=== PATIENT | female | born 1985 | race Caucasian/White ===

== ENCOUNTER 2016-06-12 20:31 | Inpatient (IN) | payer OTHER ==
[~2016-06-12] VITALS: Ht 152.4 cm; Wt 77.7 kg
[~2016-06-12 20:31] MED LIST: DEPO150I IM; LORT1TAB PO; MAGN400T2 PO; MAXA5TAB10 PO; MEDR15VL IM; NORC5TAB PO; PRIL20CA9 PO; VITA-113 SL; VITA50003 PO; ZOFR20TA PO
[2016-06-12] MEDS ORDERED: NS 2,000 ML IV ONE (21:15)
[2016-06-12] MEDS ORDERED: METOCLOPRAMIDE INJ 10MG/2ML VIAL (J2765) IV ONE (21:15)
[2016-06-12 22:04] LABS: MEAN CORPUSCULAR HEMOGLOBIN 32.8 pg (27.0-33.0); MEAN CORPUSCULAR HGB CONC 34.2 g/dl (32.0-36.5); MEAN CORPUSCULAR VOLUME 95.9 fl (80.0-96.0); PLATELET COUNT, AUTOMATED 349 k/mm3 (150-450); RED CELL DISTRIBUTION WIDTH 12.6 % (11.5-14.5); WHITE BLOOD COUNT 26.2 K/mm3 (4.0-10.0)
[2016-06-12 22:12] LABS: ALBUMIN 4.5 GM/DL (3.2-5.2); ALBUMIN/GLOBULIN RATIO 0.9 (1.00-1.93); BILIRUBIN,DIRECT 0.1 MG/DL (0.0-0.2); BILIRUBIN,TOTAL 1.1 MG/DL (0.2-1.0); CREATININE FOR GFR 2.58 MG/DL (0.55-1.02); GLOMERULAR FILTRATION RATE 22.9 (>60); POTASSIUM SERUM 4.2 MEQ/L (3.5-5.1); TOTAL PROTEIN 9.5 GM/DL (6.4-8.2)
[2016-06-12 22:25] LABS: BANDS 21 % (< 11)
[2016-06-12] MEDS ORDERED: NS 1,000 ML IV ONE (22:45)
[2016-06-13] MEDS ORDERED: MORPHINE 4 MG/ML 1ML SYRINGE IV ONE
--- NOTE | 2016-06-13 00:20 | REPUSA ---
CLINICAL HISTORY: Pain. TECHNIQUE: Multiple axial CT images were obtained through the abdomen and pelvis without administrat ion of oral or IV contrast material. COMMENTS: Liver is enlarged with diffuse hepatic hypoattenuation compatible with fatty infiltration. There is no intra or extrahepatic biliary ductal dilatation. The spleen is normal. The gallbladder is within normal limits. The pancreas is of normal contour and attenuation characteristics. There is no evid ence of adrenal mass. The kidneys are normal in size, shape and configuration. No renal or ureteral calculi are identified . There is no hydroureter or hydronephrosis. Status post appendectomy. There is evidence of severe circumferential wall thickening involving duod enum as well as loops of jejunum and ileum compatible with enteritis. No evidence for small or large bowel obstruction. There is no evidence of abdominal ascites or lymphadenopathy. There is no evidence of intrinsic or extrinsic bladder mass. There is no pelvic ascites or lymphaden opathy. Uterus and ovaries are unremarkable. Images of the lung bases show no evidence of pleural or parenchymal mass. There are no pleural effus ions. The bony structures are free of lytic or blastic lesions. IMPRESSION: 1. Fatty liver. 2. Relatively severe enteritis. Consider consultation with GI service. Thank you for your kind referral of this patient. We appreciate the opportunity to participate in th is patient's care.
[2016-06-13] MEDS ORDERED: ONDANSETRON 4MG/2ML VIAL (J2405) IV ONE (00:30)
[2016-06-13] MEDS ORDERED: CYCL10TA PO (01:22)
[2016-06-13] MEDS ORDERED: LYRI75CA PO (01:22)
[2016-06-13] MEDS ORDERED: VITA50003 PO (01:22)
[2016-06-13] MEDS ORDERED: AUGM875T27 PO (01:22)
[2016-06-13] MEDS: NS 1,000 ML IV SCH ×3 (01:58→15:57)
[2016-06-13] MEDS ORDERED: ONDANSETRON 4MG/2ML VIAL (J2405) IV PRN (02:15)
[2016-06-13] MEDS ORDERED: CYCLOBENZAPRINE 10 MG TAB PO PRN (02:15)
[2016-06-13 02:30] LABS: CONTROL LINE HCG INT CTR LINE PRESENT
[2016-06-13 02:41] LABS: MAGNESIUM LEVEL 1.9 MG/DL (1.8-2.4)
[2016-06-13] MEDS: PIPERACILLIN/TAZOBACTAM SOD 2.25 GM in D5W MINI-BAG PLUS 50 ML IV SCH ×4 (04:21→21:32)
--- NOTE | 2016-06-13 04:40 | HPEPDOC ---
General Date of Admission Jun 13, 2016 at 02:07 Attending Physician: KAREEN ALBA MD Chief Complaint The patient is a 30-year-old female admitted with a reason for visit of Gastroenteritis And Colitis. Source: Patient, RN notes reviewed Exam Limitations: No limitations Timing/Duration: 24 hours Associated Symptoms: Fever, Chills, Headaches, Loss of appetite, Vomiting, Weakness History of Present Illness Ms. Palafox is a 30-year-old female who presents to [facility]'s emergency Department with vomiting and diarrhea. Past medical history significant for fibromyalgia, muscle spasms, gastroesophageal reflux disease, history of carpal tunnel syndrome, history of nasal obstruction, migraines. Patient states that vomiting and diarrhea started morning. She describes the diarrhea as watery, mucoid, nonbloody. She is unable to quantify how many episodes of diarrhea she's had. States that it is a lot. Describes vomiting as clear to yellow in color and nonbloody. Was unable to quantify how many times she vomited. States it has been a lot. States she is unable to keep anything down for that reason. Has had decreased fluid and food intake. States that she feels "freezing" and states that she feels like she has had a fever. Describes an occipital headache that has remained constant. Feels weak, dizzy, and lightheaded. She reports no changes to her dietary habits. Son has been diagnosed with sinus infection and both son and patient are apparently being treated for an upper respiratory infection. Patient reports postnasal drainage, sinus pressure and pain, and facial pain. Patient reports no relief with treatment. Sore throat without cough. Reports low back pain that is stabbing in nature and "charley horses" in the left lower extremity. Reports a one-time episode onset of blurry vision that happened within this past week and resolved spontaneously. Also reports some hearing derangements within this past week that also resolved spontaneously. Describes it as if "she was listening to things in a tunnel". Patient denies nausea, abdominal pain, chest pain, palpitations, shortness of breath, paroxysmal nocturnal dyspnea, numbness and/or tingling, changes to urinary symptoms (including hematuria, urinary frequency, urinary urgency, dysuria), swelling in an extremity, acute transient vision loss, diplopia, acute hearing loss, tinnitus, night sweats. Hospitalist service was consulted and patient was subsequently admitted to the medical management. Home Medications Scheduled Amoxicillin/Clavulanate Potas (Augmentin 875-125 mg) 1 Tab Tab 875 MG PO BID ( Reported) For 10 days; started 06/11/16 @ 1900 Cyanocobalamin (Vitamin B-12) 1,000 Mcg Sub 1,000 MCG SL DAILY (Reported) Ergocalciferol (Vitamin D) 50,000 Unit Cap 50,000 UNIT PO ASDIRECTED (Reported ) 1xW - Tues Magnesium Oxide (Magnesium Oxide) 400 Mg Tab 400 MG PO BID (Reported) Medroxyprogesterone Acetate (Depo-Provera Contraceptiv) 150 Mg/Ml Inj 150 MG IM Q3M (Reported) Omeprazole (Prilosec) 20 Mg Cap 20 MG PO DAILY (Reported) Pregabalin (Lyrica) 75 Mg Cap 75 MG PO BID (Reported) Scheduled PRN Acetaminophen/Hydrocodone ([place] 5-325 mg) 1 Tab Tab 1 TAB PO Q8H PRN PRN PAIN ( Reported) Cyclobenzaprine HCl (Cyclobenzaprine HCl) 10 Mg Tab 10 MG PO TID PRN PRN MUSCLE SPASMS (Reported) Allergies Coded Allergies: Aspirin (Verified Allergy, Intermediate, HIVES, 02/20/14) Levofloxacin (Verified Allergy, Intermediate, HIVES, 02/20/14) Naproxen (Verified Allergy, Intermediate, HIVES, 02/20/14) Codeine (Verified Adverse Reaction, Mild, N/V, 02/20/14) Past Medical History Medical History 1. Fibromyalgia 2. Muscle spasms 3. Gastroesophageal reflux disease on 4. History of carpal tunnel syndrome 5. History of nasal obstruction Surgical History 1. Appendectomy 2. Septoplasty 3. [place] teeth removal 4. Bilateral carpal tunnel release Family History Unable to provide family history when questioned Social History * Smoker: current smoker (one pack per day for 20 years) Drugs: denies Recent Travel/Sick Contacts: Reports: Recent sick contacts (son has been diagnosed with sinus infection), Denies: Recent travel Psychosocial History: No pertinent psych hx Lives independently with son Works as a cashier assistant Denies pets in the home Denies environmental exposures Denies any travel Review of Symptoms Constitutional: Reports: Chills, Fever, Weakness, Denies: Night Sweats Eyes: Reports: Vision change (one episode of sudden onset blurry vision that resolved spontaneously) ENT: Reports: Head Aches (occipital, constant), Post Nasal Drip, Sinus Congestion (reports pressure behind the bridge of her nose as well as maxillary sinus pressure), Sore Throat Skin: Denies: Lesions, Rash Pulmonary: Denies: Cough, Dyspnea, Pleuritic Chest Pain Cardiovascular: Reports: Lt Headedness, Denies: Chest Pain, Edema, Orthopnea, Palpitations, Paroxysmal Noc. Dyspnea Gastrointestinal: Reports: Diarrhea (unable to quantify, watery, mucoid, nonbloody), Vomiting (unable to quantify, clear to yellow in color, nonbloody), Denies: Abdominal Pain, Constipation, Hematochezia, Melena, Nausea Genitourinary: Denies: Dysuria, Frequency, Hematuria, Incontinence Hematologic: Denies: Bruising Musculoskeletal: Reports: Back Pain (low back, stabbing), Other Symptoms ( currently experiencing charley horses in the left lower extremity), Spasms Neurological: Reports: Weakness, Denies: Numbness Physical Examination General Exam: Positive: Alert, Cooperative Eye Exam: Positive: Conjunctiva & lids normal, EOMI, PERRLA, Negative: Sclera icteric ENT Exam: Positive: Atraumatic, Mucous membr. moist/pink, Nares Patent, Other ENT (posterior pharynx erythematous), Pinna Normal, Tongue Midline, Negative: Ext Auditory Canal Nml (bilaterally erythematous), Pharynx Normal, Tympanic Membranes Normal (tympanic membrane on the left appears erythematous) Neck Exam: Positive: Supple, Negative: JVD, Lymphadenopathy, thyromegaly Chest Exam: Positive: Clear to auscultation, Normal air movement Heart Exam: Positive: Normal S1, Normal S2, Rate Normal, Regular Rhythm, Tachycardic, Negative: Murmurs, Rubs Telemetry: Positive: Tachycardia Abdomen Exam: Positive: Normal bowel sounds, Soft, Negative: Hepatospenomegaly, Tenderness Extremity Exam: Positive: Normal pulses (tachycardic), Negative: Clubbing, Cyanosis, Edema, Swelling, Tenderness Neuro Exam: Positive: Cranial Nerves 3-12 NL, Normal Speech, Strength at 5/5 X4 ext Other physical findings CT of the abdomen and pelvis without contrast COMMENTS: Liver is enlarged with diffuse hepatic hypoattenuation compatible with fatty infiltration. There is no intra-or extrahepatic biliary ductal dilatation. Spleen is normal. The gallbladder is within normal limits. The pancreas is normal contour and attenuation characteristics. Was no evidence of adrenal mass. The kidneys are normal in size, shape and configuration. No renal or ureteral cocci identified. There is no hydroureter or hydronephrosis. Date is post appendectomy. There is evidence of severe circumferential wall thickening involving duodenum as well as loops of jejunum and ileum compatible with enteritis. No evidence of small or large bowel obstruction. There is no evidence of abdominal ascites or lymphadenopathy. Is no evidence of intrinsic or extrinsic bed rest. There is no pelvic ascites or lymphadenopathy. Uterus and ovaries unremarkable. Images at the lung bases show no evidence of pleural parenchymal mass. There are no pleural effusions. The bony structures are free of lytic or blastic lesions. IMPRESSION: 1. Fatty liver. 2. Relatively severe enteritis. Consider consultation with GI service. Vital Signs T 97.9 HR 120 RR 18 BP 117/74 O2 94% RA Height (in): 60 Weight (kg): 72.575 BMI (kg): 31.2 Laboratory Data Labs 24H Laboratory Tests 2 06/12/16 21:43: Aspartate Amino Transf (AST/SGOT) 22, Alanine Aminotransferase (ALT/SGPT) 46, Alkaline Phosphatase 126H, Total Bilirubin 1.1H, Direct Bilirubin 0.1, Albumin 4.5, Albumin/Globulin Ratio 0.90L, Amylase Level 102, Anion Gap 12, Band Neutrophils 21H, White Blood Count 26.2H, Red Blood Count 6.01H, Hemoglobin 19.7H, Hematocrit 57.7H, Mean Corpuscular Volume 95.9, Mean Corpuscular Hemoglobin 32.8, Mean Corpuscular Hemoglobin Concent 34.2, Red Cell Distribution Width 12.6, Platelet Count 349, Neutrophils (%) (Auto) , Lymphocytes (%) (Auto) , Monocytes (%) (Auto) , Eosinophils (%) (Auto) , Basophils (%) (Auto) , Neutrophils # (Auto) , Lymphocytes # (Auto) , Monocytes # (Auto) , Eosinophils # (Auto) , Basophils # (Auto) , Calcium Level 10.0, Glomerular Filtration Rate 22.9L, Large Unclassified Cells # , Large Unclassified Cells % , Lipase 245, Lymphocytes (Manual) 8L, Metamyelocytes 1H, Monocytes (Manual) 3, Neutrophils 67, Platelet Estimate NORMAL, Red Blood Cell Morphology NORMAL, Total Protein 9.5H 06/13/16 01:05: Human Chorionic Gonadotropin, Qual NEGATIVE, Lactic Acid (Sepsis) 2.8*H, Magnesium Level 1.9 CBC/BMP Laboratory Tests 06/12/16 21:43 Red Blood Count 6.01 H, Mean Corpuscular Volume 95.9, Mean Corpuscular Hemoglobin 32.8, Mean Corpuscular Hemoglobin Concent 34.2, Red Cell Distribution Width 12.6, Neutrophils (%) (Auto) , Lymphocytes (%) (Auto) , Monocytes (%) (Auto) , Eosinophils (%) (Auto) , Basophils (%) (Auto) , Neutrophils # (Auto) , Lymphocytes # (Auto) , Monocytes # (Auto) , Eosinophils # (Auto) , Basophils # (Auto) Microbiology Microbiology 06/13/16 Blood Culture, Received Pending 06/13/16 Blood Culture, Received Pending RAD Interpretation STUDY: CT of the abdomen and pelvis without contrast Rad Actions: Report Reviewed Assessment/Plan This is a 30-year-old female who presented with diarrhea and vomiting likely secondary to a viral gastrointestinal pathology. 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, CBC with differential, BMP Obtain blood and urine cultures Repeat a lactic acid and 4 hours (2) Acute renal failure Status: Acute Problem Text: BUN and creatinine are 18 and 2.5, respectively Could possibly be related to dehydration secondary to gastrointestinal losses Provide intravenous fluid resuscitation Monitor with BMP Obtain urine protein, urine creatinine level (3) Bandemia Status: Acute Problem Text: Bands of 21 Monitor with CBC with differential Prescribed Zosyn empirically (4) Elevated hemoglobin Status: Acute Problem Text: Hemoglobin of 19.7 Could be secondary to acute renal failure secondary to dehydration Monitor CBC Administer intravenous fluids (5) Elevated hematocrit Status: Acute Problem Text: Hematocrit 57.7 Could be secondary to acute renal failure secondary to dehydration Monitor CBC Provide intravenous fluids (6) Fatty liver Status: Acute Problem Text: Plan the liver is noted on CT AST and ALT are normal Patient denies alcohol abuse or exposure to hepatitis Ordered hepatitis panel Ordered celiac markers Ordered lipid panel Plan / VTE VTE Prophylaxis Ordered?: Yes (TEDs and sequentials) Plan Plan Gastroenteritis Patient has had both diarrhea and vomiting too numerous to count. CT of the abdomen and pelvis reveals enteritis. She has a white count of 26.2. Bandemia of 21. Lactic acid of 2.8. Likely all secondary to gastrointestinal course. Lactic acid level in 4 hours to trend. Obtain gastrointestinal panel. Prescribed Zosyn for empiric therapy at this time. Obtain blood and urine cultures. Provide intravenous fluid resuscitation 125 mL per hour. Make patient nothing by mouth at this time. Monitor daily vital signs, CBC with differential , and BMP. Bandemia Patient's bands at time of presentation were 21. Likely secondary to acute inflammatory infectious process occurring. We'll monitor with daily CBC with differential. Acute renal failure Patient's BUN and creatinine are 18 and 2.58, respectively. Patient denies urinary symptoms. We will obtain urinalysis and culture. Likely secondary to dehydration secondary to patient's vomiting and diarrhea. We'll provide intravenous fluid resuscitation with normal saline at 125 mL per hour. We will obtain urine protein, urine creatinine. Monitor with BMP. Elevated hemoglobin and hematocrit Hemoglobin and hematocrit time of presentation were 19.7 and 57.7, respectively. Likely secondary to patient's dehydration. Patient will remain nothing by mouth at this time and received intravenous fluid resuscitation at 125 mL per hour. Patient may have ice chips. Fatty liver CT of the abdomen and pelvis reveals an enlarged liver with hypoattenuation compatible with fatty infiltration. Patient denies alcohol abuse or exposure to hepatitis. Have ordered hepatitis profile, lipid profile, celiac disease markers. Disposition To the PCU Anticipated hospitalization: 2 nights Attending: Dr. Dickerson IVF: Initiate Diet: Make NPO Activity: Bedrest (with commode) Diagnostics: Check Labs, Repeat Labs in AM, Obtain Cultures Anticipated Discharge: Home MANUELJACINTO Sebastien MCKEON Jun 13, 2016 03:59
[2016-06-13 04:42] VITALS: BP 121/76
[2016-06-13 04:43] LABS: BASO # 0.1 K/mm3 (0.0-0.2); BASO % 0.7 % (0.0-1.0); EOS # 0.1 K/mm3 (0.0-0.50); EOS % 0.5 % (0.0-3.0); LARGE UNSTAINED CELL # 0.2 K/mm3 (0.0-0.4); LARGE UNSTAINED CELL % 1.2 % (0.0-4.0); LYMPH # 2.2 K/mm3 (1.5-4.5); LYMPH % 12.3 % (24.0-44.0); MEAN CORPUSCULAR HEMOGLOBIN 32.3 pg (27.0-33.0); MEAN CORPUSCULAR HGB CONC 33.4 g/dl (32.0-36.5); MEAN CORPUSCULAR VOLUME 96.9 fl (80.0-96.0); MONO # 0.8 K/mm3 (0.0-0.8); MONO % 4.2 % (0.0-5.0); NEUTROPHILS # 14.6 K/mm3 (1.8-7.7); NEUTROPHILS % 81.1 % (36.0-66.0); PLATELET COUNT, AUTOMATED 269 k/mm3 (150-450); RED CELL DISTRIBUTION WIDTH 12.7 % (11.5-14.5)
[2016-06-13 04:58] LABS: YEAST LIKE CELL URINE AUTO SMALL
[2016-06-13 05:45] LABS: ALKALINE PHOSPHATASE 77 U/L (45-117); ALT/SGPT 29 U/L (12-78); ANION GAP 11 MEQ/L (8-16); AST/SGOT 12 U/L (15-37); BILIRUBIN,TOTAL 0.6 MG/DL (0.2-1.0); BLOOD UREA NITROGEN 17 MG/DL (7-18); CARBON DIOXIDE LEVEL 19 MEQ/L (21-32); CHLORIDE LEVEL 113 MEQ/L (98-107); CHOLESTEROL LEVEL 183 MG/DL (<200); CREATININE FOR GFR 1.09 MG/DL (0.55-1.02); GLUCOSE, FASTING 107 MG/DL (70-105); POTASSIUM SERUM 4.1 MEQ/L (3.5-5.1); SODIUM LEVEL 143 MEQ/L (136-145); TRIGLYCERIDES LEVEL 663 MG/DL (<150)
[2016-06-13 06:02] LABS: ALBUMIN/GLOBULIN RATIO 0.91 (1.00-1.93); CALCIUM LEVEL 7.9 MG/DL (8.5-10.1); TOTAL PROTEIN 6.3 GM/DL (6.4-8.2)
[2016-06-13 06:10] LABS: GLOMERULAR FILTRATION RATE > 60.0 (>60)
[2016-06-13 07:19] LABS: ALBUMIN 2.8 GM/DL (3.2-5.2); ALBUMIN/GLOBULIN RATIO 0.85 (1.00-1.93); ALKALINE PHOSPHATASE 78 U/L (45-117); ALT/SGPT 28 U/L (12-78); ANION GAP 8 MEQ/L (8-16); AST/SGOT 10 U/L (15-37); BILIRUBIN,TOTAL 0.9 MG/DL (0.2-1.0); BLOOD UREA NITROGEN 16 MG/DL (7-18); CALCIUM LEVEL 7.6 MG/DL (8.5-10.1); CARBON DIOXIDE LEVEL 21 MEQ/L (21-32); CHLORIDE LEVEL 111 MEQ/L (98-107); CREATININE FOR GFR 0.89 MG/DL (0.55-1.02); GLOMERULAR FILTRATION RATE > 60.0 (>60); GLUCOSE, FASTING 98 MG/DL (70-105); SODIUM LEVEL 140 MEQ/L (136-145); TOTAL PROTEIN 6.1 GM/DL (6.4-8.2)
[2016-06-13 08:00] VITALS: BP 124/75
[2016-06-13] MEDS: PREGABALIN 75 MG CAP(LYRICA) PO SCH ×2 (08:23→21:32)
[2016-06-13] MEDS: OMEPRAZOLE 20 MG CAP PO SCH (08:23)
[2016-06-13] MEDS: MAGNESIUM OXIDE 400 MG TAB (MAG-OX) PO SCH ×2 (08:23→21:32)
--- NOTE | 2016-06-13 08:59 | REP ---
Portable chest x-ray: Single view. History: Question infiltrate. Comparison study February 06, 2016. Findings: The lungs are well inflated and clear. Heart is not enlarged. EKG electrodes are seen. Pulmonary vasculature is not increased. Impression: No active disease. Signed by Jose White MD 06/13/2016 09:39 A
[2016-06-13] MEDS: ACETAMINOPHEN TAB 650MG DOSE (2X325MG) PO PRN ×2 (10:05→17:11)
[2016-06-13 12:21] VITALS: BP 105/67
--- NOTE | 2016-06-13 12:26 | IPNPDOC ---
Subjective Date Seen The patient was seen on 06/13/16. Subjective Chief Complaint/HPI The patient is a 30-year-old female admitted with a reason for visit of Gastroenteritis And Colitis. Events since last encounter pt seen and examined, still very nauseated and having diarrhea Objective Physical Examination General Exam: Positive: Alert, Cooperative Eye Exam: Positive: Conjunctiva & lids normal, EOMI, PERRLA, Negative: Sclera icteric ENT Exam: Positive: Atraumatic, Mucous membr. moist/pink, Nares Patent, Other ENT (posterior pharynx erythematous), Pinna Normal, Tongue Midline, Negative: Ext Auditory Canal Nml (bilaterally erythematous), Pharynx Normal, Tympanic Membranes Normal (tympanic membrane on the left appears erythematous) Neck Exam: Positive: Supple, Negative: JVD, Lymphadenopathy, thyromegaly Chest Exam: Positive: Clear to auscultation, Normal air movement Heart Exam: Positive: Normal S1, Normal S2, Rate Normal, Regular Rhythm, Tachycardic, Negative: Murmurs, Rubs Telemetry: Positive: Tachycardia Abdomen Exam: Positive: Normal bowel sounds, Soft, Negative: Hepatospenomegaly, Tenderness Extremity Exam: Positive: Normal pulses (tachycardic), Negative: Clubbing, Cyanosis, Edema, Swelling, Tenderness Neuro Exam: Positive: Cranial Nerves 3-12 NL, Normal Speech, Strength at 5/5 X4 ext Assessment /Plan Problems (1) Gastroenteritis and colitis, viral Status: Acute Problem Text: * WBC 26.2, bands 21 * Likely causing patient's vomiting, diarrhea, tachycardia * CT results seem to confirm enteritis * Provide intravenous fluid resuscitation * Prescribe Zosyn empirically which will cover gram negatives and anaerobes * Obtain GI panel * Monitor vital signs, CBC with differential, BMP * Obtain blood and urine cultures (2) Acute renal failure Status: Acute Problem Text: BUN and creatinine are 18 and 2.5, respectively Could possibly be related to dehydration secondary to gastrointestinal losses Provide intravenous fluid resuscitation Monitor with BMP Obtain urine protein, urine creatinine level (3) Bandemia Status: Acute Problem Text: Bands of 21 Monitor with CBC with differential Prescribed Zosyn empirically (4) Elevated hemoglobin Status: Resolved Problem Text: Could be secondary to acute renal failure secondary to dehydration Monitor CBC Administer intravenous fluids (5) Elevated hematocrit Status: Resolved Problem Text: Could be secondary to acute renal failure secondary to dehydration Monitor CBC Provide intravenous fluids Plan/VTE VTE Prophylaxis Ordered?: Yes (TEDs and sequentials) Plan IVF: Initiate Diet: Make NPO Activity: Bedrest (with commode) Diagnostics: Check Labs, Repeat Labs in AM, Obtain Cultures Anticipated Discharge: Home VS, I&O, 24H, Fishbone Vital Signs/I&O Vital Signs Date Time Temp Pulse Resp B/P Pulse Ox O2 Delivery O2 Flow Rate FiO2 06/13/16 08:00 96.4 89 20 124/75 94 Room Air I&O- Last 24 Hours up to 6 AM 06/13/16 06:00 Intake Total 4500 ml Balance 4500 ml Laboratory Data 24H LABS Laboratory Tests 2 06/12/16 21:43: Aspartate Amino Transf (AST/SGOT) 22, Alanine Aminotransferase (ALT/SGPT) 46, Alkaline Phosphatase 126H, Total Bilirubin 1.1H, Direct Bilirubin 0.1, Albumin 4.5, Albumin/Globulin Ratio 0.90L, Amylase Level 102, Anion Gap 12, Band Neutrophils 21H, White Blood Count 26.2H, Red Blood Count 6.01H, Hemoglobin 19.7H, Hematocrit 57.7H, Mean Corpuscular Volume 95.9, Mean Corpuscular Hemoglobin 32.8, Mean Corpuscular Hemoglobin Concent 34.2, Red Cell Distribution Width 12.6, Platelet Count 349, Neutrophils (%) (Auto) , Lymphocytes (%) (Auto) , Monocytes (%) (Auto) , Eosinophils (%) (Auto) , Basophils (%) (Auto) , Neutrophils # (Auto) , Lymphocytes # (Auto) , Monocytes # (Auto) , Eosinophils # (Auto) , Basophils # (Auto) , Calcium Level 10.0, Glomerular Filtration Rate 22.9L, Large Unclassified Cells # , Large Unclassified Cells % , Lipase 245, Lymphocytes (Manual) 8L, Metamyelocytes 1H, Monocytes (Manual) 3, Neutrophils 67, Platelet Estimate NORMAL, Red Blood Cell Morphology NORMAL, Total Protein 9.5H 06/13/16 01:05: Human Chorionic Gonadotropin, Qual NEGATIVE, Lactic Acid (Sepsis) 2.8*H, Magnesium Level 1.9 06/13/16 04:25: Urine Amorphous Sediment , Urine Appearance CLOUDYH, Urine Color YELLOW, Urine pH 6.0, Urine Specific [place] 1.017, Urine Protein 2+H, Urine Glucose (UA) NEGATIVE, Urine Ketones NEGATIVE, Urine Urobilinogen 0.2, Urine Bilirubin NEGATIVE, Urine Leukocyte Esterase NEGATIVE, Urine Bacteria (Auto) 2+H, Urine Blood NEGATIVE, Urine Calcium Carbonate Cryst(Auto) , Urine Calcium Oxalate Cryst (Auto) , Urine Calcium Phosphate Radha (Auto) , Urine Cellular Casts , Urine Cystine Crystals , Urine Granular Casts (Auto) 1, Urine Hyaline Casts ( Auto) 12, Urine Leucine Crystals , Urine Mucus (Auto) SMALL, Urine Nitrite NEGATIVE, Urine Oval Fat Bodies (Auto) , Urine RBC (Auto) 3, Urine Random Creatinine 239.0, Urine Random Total Protein 106.5H, Urine Renal Epithelial Cells , Urine Sperm (Auto) , Urine Squamous Epithelial Cells 8, Urine Transitional Epithelial Cells , Urine Trichomonas (Auto) , Urine Triple Phosphate Cryst (Auto) , Urine Tyrosine Crystals , Urine Uric Acid Crystals ( Auto) , Urine WBC (Auto) 9H, Urine Waxy Casts (Auto) , Urine Yeast-Like Cells ( Auto) SMALLH 06/13/16 04:33: Aspartate Amino Transf (AST/SGOT) 12L, Alanine Aminotransferase (ALT/SGPT) 29, Alkaline Phosphatase 77, Total Bilirubin 0.6, Albumin 3.0#L, Albumin/Globulin Ratio 0.91L, Anion Gap 11, White Blood Count 18.0H, Red Blood Count 4.50, Hemoglobin 14.5#, Hematocrit 43.6, Mean Corpuscular Volume 96.9H, Mean Corpuscular Hemoglobin 32.3, Mean Corpuscular Hemoglobin Concent 33.4, Red Cell Distribution Width 12.7, Platelet Count 269, Neutrophils (%) (Auto) 81.1H, Lymphocytes (%) (Auto) 12.3L, Monocytes (%) (Auto) 4.2, Eosinophils (%) (Auto) 0.5, Basophils (%) (Auto) 0.7, Neutrophils # (Auto) 14.6H, Lymphocytes # (Auto) 2.2, Monocytes # (Auto) 0.8, Eosinophils # (Auto) 0.1, Basophils # (Auto) 0.1, Calcium Level 7.9#L, Glomerular Filtration Rate > 60.0, Large Unclassified Cells # 0.2, Large Unclassified Cells % 1.2, Total Protein 6.3#L, Lactic Acid ( Sepsis) 1.5, Blood Urea Nitrogen 17, Creatinine 1.09#H, Sodium Level 143, Potassium Level 4.1, Chloride Level 113H, Carbon Dioxide Level 19L, Triglycerides Level 663H, Cholesterol Level 183, HDL Cholesterol 28L, LDL Cholesterol , Cholesterol/HDL Ratio 6.535H, Non-HDL Cholesterol (LDL + VLDL) 155 06/13/16 06:37: Blood Urea Nitrogen 16, Creatinine 0.89, Sodium Level 140, Potassium Level 4.0, Chloride Level 111H, Carbon Dioxide Level 21, Calcium Level 7.6L, Aspartate Amino Transf (AST/SGOT) 10L, Alanine Aminotransferase (ALT/SGPT) 28, Alkaline Phosphatase 78, Total Bilirubin 0.9, Total Protein 6.1L, Albumin 2.8L, Albumin/ Globulin Ratio 0.85L, Anion Gap 8, Glomerular Filtration Rate > 60.0, Immunoglobulin A 188.0 CBC/BMP Laboratory Tests 06/12/16 21:43 Red Blood Count 6.01 H, Mean Corpuscular Volume 95.9, Mean Corpuscular Hemoglobin 32.8, Mean Corpuscular Hemoglobin Concent 34.2, Red Cell Distribution Width 12.6, Neutrophils (%) (Auto) , Lymphocytes (%) (Auto) , Monocytes (%) (Auto) , Eosinophils (%) (Auto) , Basophils (%) (Auto) , Neutrophils # (Auto) , Lymphocytes # (Auto) , Monocytes # (Auto) , Eosinophils # (Auto) , Basophils # (Auto) 06/13/16 04:33 Red Blood Count 4.50, Mean Corpuscular Volume 96.9 H, Mean Corpuscular Hemoglobin 32.3, Mean Corpuscular Hemoglobin Concent 33.4, Red Cell Distribution Width 12.7, Neutrophils (%) (Auto) 81.1 H, Lymphocytes (%) (Auto) 12.3 L, Monocytes (%) (Auto) 4.2, Eosinophils (%) (Auto) 0.5, Basophils (%) ( Auto) 0.7, Neutrophils # (Auto) 14.6 H, Lymphocytes # (Auto) 2.2, Monocytes # ( Auto) 0.8, Eosinophils # (Auto) 0.1, Basophils # (Auto) 0.1, Calcium Level 7.9 # L, Aspartate Amino Transf (AST/SGOT) 12 L, Alanine Aminotransferase (ALT/SGPT) 29, Alkaline Phosphatase 77, Total Bilirubin 0.6, Triglycerides Level 663 H, Cholesterol Level 183, HDL Cholesterol 28 L, LDL Cholesterol , Total Protein 6.3 #L, Albumin 3.0 #L 06/13/16 06:37 Calcium Level 7.6 L, Aspartate Amino Transf (AST/SGOT) 10 L, Alanine Aminotransferase (ALT/SGPT) 28, Alkaline Phosphatase 78, Total Bilirubin 0.9, Total Protein 6.1 L, Albumin 2.8 L Microbiology Microbiology 06/13/16 Blood Culture, Received Pending 06/13/16 Blood Culture, Received Pending 06/13/16 Gastrointestinal Tract Panel (PCR) - Final, Complete Norovirus 06/13/16 Influenza Virus Type A Antigen - Final, Complete 06/13/16 Influenza Virus Type B Antigen - Final, Complete 06/13/16 Urine Culture, Received Pending YOLA BARROS DO Jun 13, 2016 12:25 Norovirus 06/13/16 Influenza Virus Type A Antigen - Final, Complete 06/13/16 Influenza Virus Type B Antigen - Final, Complete 06/13/16 Urine Culture, Received Pending YOLA BARROS DO Jun 13, 2016 12:25
[2016-06-13 16:00] VITALS: BP 115/65
[2016-06-13 20:00] VITALS: BP 124/73
[2016-06-14] VITALS: BP 126/74
[2016-06-14 04:00] VITALS: BP 115/65
[2016-06-14] MEDS: NS 1,000 ML IV SCH ×2 (04:33→08:08)
[2016-06-14] MEDS: PIPERACILLIN/TAZOBACTAM SOD 2.25 GM in D5W MINI-BAG PLUS 50 ML IV SCH ×2 (04:33→10:00)
[2016-06-14 04:38] LABS: BASO % 0.4 % (0.0-1.0); EOS # 0.2 K/mm3 (0.0-0.50); EOS % 1.5 % (0.0-3.0); LARGE UNSTAINED CELL # 0.4 K/mm3 (0.0-0.4); LARGE UNSTAINED CELL % 3.4 % (0.0-4.0); LYMPH % 39.8 % (24.0-44.0); MEAN CORPUSCULAR HEMOGLOBIN 33.2 pg (27.0-33.0); MEAN CORPUSCULAR HGB CONC 34.2 g/dl (32.0-36.5); MEAN CORPUSCULAR VOLUME 97.1 fl (80.0-96.0); MONO # 0.8 K/mm3 (0.0-0.8); MONO % 7.1 % (0.0-5.0); NEUTROPHILS # 5.5 K/mm3 (1.8-7.7); NEUTROPHILS % 47.7 % (36.0-66.0); PLATELET COUNT, AUTOMATED 251 k/mm3 (150-450); RED CELL DISTRIBUTION WIDTH 12.8 % (11.5-14.5)
[2016-06-14 04:39] LABS: WHITE BLOOD COUNT 11.5 K/mm3 (4.0-10.0)
[2016-06-14 04:56] LABS: ANION GAP 7 MEQ/L (8-16); BLOOD UREA NITROGEN 5 MG/DL (7-18); CALCIUM LEVEL 7.6 MG/DL (8.5-10.1); CARBON DIOXIDE LEVEL 23 MEQ/L (21-32); CHLORIDE LEVEL 114 MEQ/L (98-107); CREATININE FOR GFR 0.61 MG/DL (0.55-1.02); GLOMERULAR FILTRATION RATE > 60.0 (>60); GLUCOSE, FASTING 106 MG/DL (70-105); POTASSIUM SERUM 3.5 MEQ/L (3.5-5.1); SODIUM LEVEL 144 MEQ/L (136-145)
[2016-06-14] MEDS: OMEPRAZOLE 20 MG CAP PO SCH (08:08)
[2016-06-14] MEDS: MAGNESIUM OXIDE 400 MG TAB (MAG-OX) PO SCH (08:08)
[2016-06-14] MEDS: PREGABALIN 75 MG CAP(LYRICA) PO SCH (08:08)
[2016-06-14 08:56] VITALS: BP 109/69
[2016-06-14] MEDS ORDERED: NICOTINE 14 MG/24 HR TRANSDERMAL TD SCH (09:00)
--- NOTE | 2016-06-14 11:02 | IPNPDOC ---
Subjective Date Seen The patient was seen on 06/14/16. Subjective Chief Complaint/HPI The patient is a 30-year-old female admitted with a reason for visit of Gastroenteritis And Colitis. Events since last encounter pt seen and examined, had no fevers overnight, last episode of diarrhea was last night at midnight, states she is back to her baseline now, denies any abd pain or cramps, tolerating a regular diet Objective Physical Examination General Exam: Positive: Alert, Cooperative Eye Exam: Positive: Conjunctiva & lids normal, EOMI, PERRLA, Negative: Sclera icteric ENT Exam: Positive: Atraumatic, Mucous membr. moist/pink, Nares Patent, Other ENT (posterior pharynx erythematous), Pinna Normal, Tongue Midline, Negative: Ext Auditory Canal Nml (bilaterally erythematous), Pharynx Normal, Tympanic Membranes Normal (tympanic membrane on the left appears erythematous) Neck Exam: Positive: Supple, Negative: JVD, Lymphadenopathy, thyromegaly Chest Exam: Positive: Clear to auscultation, Normal air movement Heart Exam: Positive: Normal S1, Normal S2, Rate Normal, Regular Rhythm, Tachycardic, Negative: Murmurs, Rubs Telemetry: Positive: Tachycardia Abdomen Exam: Positive: Normal bowel sounds, Soft, Negative: Hepatospenomegaly, Tenderness Extremity Exam: Positive: Normal pulses (tachycardic), Negative: Clubbing, Cyanosis, Edema, Swelling, Tenderness Neuro Exam: Positive: Cranial Nerves 3-12 NL, Normal Speech, Strength at 5/5 X4 ext Assessment /Plan Problems (1) Diarrhea Status: Resolved Problem Text: * tarun harvey positive * diarrhea resolving * will monitor one more day and d/c in am (2) Acute renal failure Status: Resolved Problem Text: * secondary to dehydration * had resolved, * will d/c fluids, pt is tolerating regular diet (3) Elevated hemoglobin Status: Resolved Problem Text: * secondary to acute renal failure secondary to dehydration (4) Nicotine abuse Status: Acute Problem Text: * will order Nicotine patch (5) Volume depletion, gastrointestinal loss Status: Resolved (6) Fibromyalgia Status: Chronic (7) Muscle spasm Status: Chronic Plan/VTE VTE Prophylaxis Ordered?: Yes (TEDs and sequentials) Plan IVF: Initiate Diet: Make NPO Activity: Bedrest (with commode) Diagnostics: Check Labs, Repeat Labs in AM, Obtain Cultures Anticipated Discharge: Home VS, I&O, 24H, Stef Vital Signs/I&O Vital Signs Date Time Temp Pulse Resp B/P Pulse Ox O2 Delivery O2 Flow Rate FiO2 06/14/16 08:56 98.0 73 18 109/69 98 Room Air I&O- Last 24 Hours up to 6 AM 06/14/16 06:00 Intake Total 4655 ml Output Total 1350 ml Balance 3305 ml Laboratory Data 24H LABS Laboratory Tests 2 06/14/16 04:26: Anion Gap 7L, White Blood Count 11.5H, Red Blood Count 3.97L, Hemoglobin 13.2, Hematocrit 38.6, Mean Corpuscular Volume 97.1H, Mean Corpuscular Hemoglobin 33.2H, Mean Corpuscular Hemoglobin Concent 34.2, Red Cell Distribution Width 12.8, Platelet Count 251, Neutrophils (%) (Auto) 47.7, Lymphocytes (%) (Auto) 39.8, Monocytes (%) (Auto) 7.1H, Eosinophils (%) (Auto) 1.5, Basophils (%) (Auto ) 0.4, Neutrophils # (Auto) 5.5, Lymphocytes # (Auto) 5.0H, Monocytes # (Auto) 0.8, Eosinophils # (Auto) 0.2, Basophils # (Auto) 0.0, Blood Urea Nitrogen 5#L, Creatinine 0.61, Sodium Level 144, Potassium Level 3.5, Chloride Level 114H, Carbon Dioxide Level 23, Calcium Level 7.6L, Glomerular Filtration Rate > 60.0, Large Unclassified Cells # 0.4, Large Unclassified Cells % 3.4 CBC/BMP Laboratory Tests 06/14/16 04:26 Calcium Level 7.6 L, Red Blood Count 3.97 L, Mean Corpuscular Volume 97.1 H, Mean Corpuscular Hemoglobin 33.2 H, Mean Corpuscular Hemoglobin Concent 34.2, Red Cell Distribution Width 12.8, Neutrophils (%) (Auto) 47.7, Lymphocytes (%) ( Auto) 39.8, Monocytes (%) (Auto) 7.1 H, Eosinophils (%) (Auto) 1.5, Basophils (% ) (Auto) 0.4, Neutrophils # (Auto) 5.5, Lymphocytes # (Auto) 5.0 H, Monocytes # (Auto) 0.8, Eosinophils # (Auto) 0.2, Basophils # (Auto) 0.0 Microbiology Microbiology 06/13/16 Blood Culture - Preliminary, Resulted No growth after 24 hours . All specim... 06/13/16 Blood Culture - Preliminary, Resulted No growth after 24 hours . All specim... 06/13/16 Gastrointestinal Tract Panel (PCR) - Final, Complete Norovirus 06/13/16 Influenza Virus Type A Antigen - Final, Complete 06/13/16 Influenza Virus Type B Antigen - Final, Complete 06/13/16 Urine Culture, Received Pending YOLA BARROS DO Jun 14, 2016 11:02
[2016-06-14 11:20] VITALS: BP 130/93
--- NOTE | 2016-06-14 16:11 | DSES ---
DATE OF ADMISSION: 06/13/2016 DATE OF DISCHARGE: 06/14/2016 REASON FOR ADMISSION: Nausea, vomiting, diarrhea. FINAL DIAGNOSIS: Norovirus. SECONDARY DIAGNOSES: 1. Acute kidney injury has resolved. 2. Elevated hemoglobin likely secondary to hemoconcentration. 3. Nicotine abuse. 4. Volume depletion. 5. History of fibromyalgia. 6. History of muscle spasm. HISTORY OF PRESENT ILLNESS: Patient is a 30-year-old female past medical history significant for fibromyalgia, muscle spasm, presented to the emergency room complaining of vomiting and diarrhea that started morning. She describes the diarrhea as watery, nonbloody, mucoid. She has been unable to quantify how many episodes of diarrhea but it has been constant. She describes vomit as nonbilious, nonbloody, unable to keep anything down. She had decreased fluid and food intake. She states she has been feeling cold. She also describes an occipital headache that is constant in nature. She felt weak, dizzy and lightheaded. The patient was admitted under hospitalist service. HOSPITAL COURSE: Gastrointestinal (GI) panel was ordered and came back positive for norovirus. The patient also underwent CT abdomen and pelvis which showed only fatty liver and relatively severe enteritis. The patient was started on antibiotic, Zosyn, in the emergency room she received one-time dose. She had an elevated leukocytosis of 26.2 which had trended down the following day to 18, and then on day of discharge 11.5. The patient was also hemoconcentrated at 19.7 hemoglobin and 57.7 hematocrit. She received 3 liters of boluses in the emergency room and was kept on IV fluids. She was kept nothing by mouth for a short period of time until she started to feel hungry and she was ordered a clear liquid diet and advance as tolerated. The patient had multiple episodes that first day of hospitalization which had resolved by the second day. The patient stated she was feeling well the second day of the hospitalization, abdominal pain had resolved. She was tolerating diet. No nausea or vomiting and no more diarrhea. She requested to go home. At that point the patient was discharged home. DISCHARGE INSTRUCTIONS: She is to followup with her primary care provider, Niesha Pérez. Diet regular. Activities as tolerated. DISCHARGE MEDICATIONS: Include: - [place] 5/325 mg one tablet every 8 hours as needed - B12 1000 mcg sublingually daily - cyclobenzaprine 10 mg three times a day as needed for muscle spasm - vitamin D 50,000 units by mouth as directed - magnesium oxide 400 mg by mouth twice a day - Depo-Provera IM every 3 months - Prilosec 20 mg daily - Lyrica 75 mg by mouth twice a day DISCHARGE CONDITION: Stable.
== END 2016-06-14 13:50 | disposition home or self-care (01) | DRG 249 ==
LOC: EDSEX 20:31 → EDBD 20:31 → M ED 21:02 → M ED INP 06-13 02:07 → M ICU 06-13 03:49 → M MSPAV 06-14 11:10
PROVIDERS: ADMIT Internal Medicine; ATTEND Internal Medicine
DX: A08.11 Acute gastroenteropathy due to Norwalk agent (principal); N17.9 Acute kidney failure, unspecified; K76.0 Fatty (change of) liver, not elsewhere classified; M79.7 Fibromyalgia; K21.9 Gastro-esophageal reflux disease without esophagitis; E86.0 Dehydration; F17.210 Nicotine dependence, cigarettes, uncomplicated; D72.825 Bandemia; M62.838 Other muscle spasm; Z79.899 Other long term (current) drug therapy; Z88.6 Allergy status to analgesic agent; Z88.5 Allergy status to narcotic agent; Z88.8 Allergy status to other drugs, medicaments and biological substances

== ENCOUNTER → 2016-06-29 | Outpatient (CLI) | payer OTHER ==
[~2016-06-29] MED LIST changes: +AUGM875T27 PO; +CYCL10TA PO; +LYRI75CA PO
[2016-06-29 19:15] LABS: BASO # 0.1 K/mm3 (0.0-0.2); BASO % 0.5 % (0.0-1.0); EOS # 0.2 K/mm3 (0.0-0.50); EOS % 1.7 % (0.0-3.0); LARGE UNSTAINED CELL # 0.2 K/mm3 (0.0-0.4); LARGE UNSTAINED CELL % 1.3 % (0.0-4.0); LYMPH # 4.1 K/mm3 (1.5-4.5); LYMPH % 34.8 % (24.0-44.0); MEAN CORPUSCULAR HEMOGLOBIN 32.5 pg (27.0-33.0); MEAN CORPUSCULAR HGB CONC 33.6 g/dl (32.0-36.5); MEAN CORPUSCULAR VOLUME 96.7 fl (80.0-96.0); MONO # 0.6 K/mm3 (0.0-0.8); MONO % 5.5 % (0.0-5.0); NEUTROPHILS # 6.4 K/mm3 (1.8-7.7); NEUTROPHILS % 56.2 % (36.0-66.0); PLATELET COUNT, AUTOMATED 289 k/mm3 (150-450); RED CELL DISTRIBUTION WIDTH 12.6 % (11.5-14.5); WHITE BLOOD COUNT 11.3 K/mm3 (4.0-10.0)
[2016-06-29 19:24] LABS: ANION GAP 9 MEQ/L (8-16); BLOOD UREA NITROGEN 7 MG/DL (7-18); CARBON DIOXIDE LEVEL 24 MEQ/L (21-32); CHLORIDE LEVEL 107 MEQ/L (98-107); CREATININE FOR GFR 0.64 MG/DL (0.55-1.02); GLOMERULAR FILTRATION RATE > 60.0 (>60); GLUCOSE, FASTING 106 MG/DL (70-105); POTASSIUM SERUM 3.8 MEQ/L (3.5-5.1); SODIUM LEVEL 140 MEQ/L (136-145)
== END ==
LOC: M WUC 14:37
PROVIDERS: ATTEND Physician Assistant Medical
DX: A08.11 Acute gastroenteropathy due to Norwalk agent (principal)

== ENCOUNTER → 2016-07-27 | Day surgery (SDC) | payer OTHER ==
[~2016-07-27] VITALS: Ht 152.4 cm; Wt 76.2 kg
[~2016-07-27] MED LIST changes: +BACITRACIN PWD 50,000 UNITS VIAL As Ordered ONE; +BUPIVACAINE HCL 0.5% 30 ML VIAL As Ordered ONE; +DESFLURANE 240 ML INHALANT As Ordered ONE; +HYDR-3713 PO; +LIDOCAINE 2% MDV 20 ML VIAL As Ordered ONE; +MIDAZOLAM INJ 2 MG/2 ML VIAL (J2250) As Ordered ONE; +NEOSPORIN GU IRRIG 20 ML VIAL As Ordered ONE; +NORC1TAB4 PO; -NORC5TAB PO; +PROPOFOL 200 MG/20 ML VIAL As Ordered ONE; +dexameTHASONE 4 MG/ML 1ML VIAL (J1100) As Ordered ONE; +fentaNYL 100 MCG/2 ML INJECTION (J3010) As Ordered ONE
[2016-07-27 06:56] LABS: CONTROL LINE UCG INT CTR LINE PRESENT
--- NOTE | 2016-07-27 09:22 | RO ---
DATE OF PROCEDURE: 07/27/2016 PREPROCEDURE DIAGNOSIS: Right chronic plantar fasciitis. POSTPROCEDURE DIAGNOSIS: Right chronic plantar fasciitis. SURGEON: Chi Olvera DPM FRUIT RAISER: None. PROCEDURE: Right endoscopic plantar fascia release. ANESTHESIA: Monitored anesthesia care with preoperative injection of 17 mL of 1:1 mixture of 2% lidocaine plain and 0.5% Marcaine plain. ESTIMATED BLOOD LOSS: Minimal. MATERIALS: #4-0 nylon and endotrek plantar fascial release system. COMPLICATIONS: None. CONDITION: Stable. INDICATION: Gissel Palafox is a 30-year-old female who presents to [facility] with complaints of plantar fasciitis. She has undergone numerous conservative treatments without resolution of pain. She presents today for surgical correction. The patient, side, and site were identified and marked in the preoperative holding area. Consent was reviewed and obtained. All risks, complications, and alternatives to the procedure were explained to the patient in detail. All questions were answered. DESCRIPTION OF PROCEDURE: The patient was brought to the operating room and placed on the operating room table in supine position. Monitored anesthesia care was delivered by the anesthesia team. Preoperative injection of 17 mL of 1:1 mixture of 2% Lidocaine plain and 0.5% Marcaine plain were injected into the right foot. The right foot was prepped and draped in the normal sterile fashion. The patient received Ancef preoperatively. Tourniquet was applied to the right ankle and inflated at 250 mmHg. A small incision was made at the medial heel at the plantar fascial insertion with a #15 blade. A hemostat was used to create a plane just plantar to the plantar fascial ligament. Next, a trocar was inserted with a cannula and a small incision was made on the lateral side of the heel allowing the cannula to go through. Next, the camera was inserted from the lateral heel. The plantar fascia was visualized. Using the plantar fascia blade, the ligament was released approximately two-thirds of the way across from medial to lateral. THe release was seen directly on camera with tension relieved when applied to the toes. The site was irrigated with saline. The cannula and camera were removed. Closure was performed with #4-0 nylon. An injection of 1 mL of Decadron was injected. Sterile dressings were applied. The tourniquet was deflated. The patient was brought to the postanesthesia care unit with vital signs stable and neurovascular status intact. She will be weight bearing as tolerated. Postoperative shoe. She will followup in the office in two days. KAMILA
[2016-07-27 09:25] VITALS: BP 137/86
== END ==
LOC: M SDC 06:25
PROVIDERS: ATTEND Podiatrist Foot & Ankle Surgery
DX: M72.2 Plantar fascial fibromatosis (principal); M41.9 Scoliosis, unspecified; M51.36 Other intervertebral disc degeneration, lumbar region; K21.9 Gastro-esophageal reflux disease without esophagitis; G43.909 Migraine, unspecified, not intractable, without status migrainosus; F17.210 Nicotine dependence, cigarettes, uncomplicated; Z79.899 Other long term (current) drug therapy; Z88.1 Allergy status to other antibiotic agents; Z88.8 Allergy status to other drugs, medicaments and biological substances; Z88.5 Allergy status to narcotic agent
CPT/HCPCS: 29893; 84703; 97116; J0690; J1100; J2250; J3010

== ENCOUNTER → 2016-09-15 | Outpatient (CLI) | payer OTHER ==
[~2016-09-15] MED LIST changes: -BACITRACIN PWD 50,000 UNITS VIAL As Ordered ONE; -BUPIVACAINE HCL 0.5% 30 ML VIAL As Ordered ONE; -DESFLURANE 240 ML INHALANT As Ordered ONE; -LIDOCAINE 2% MDV 20 ML VIAL As Ordered ONE; -MIDAZOLAM INJ 2 MG/2 ML VIAL (J2250) As Ordered ONE; -NEOSPORIN GU IRRIG 20 ML VIAL As Ordered ONE; -PROPOFOL 200 MG/20 ML VIAL As Ordered ONE; -dexameTHASONE 4 MG/ML 1ML VIAL (J1100) As Ordered ONE; -fentaNYL 100 MCG/2 ML INJECTION (J3010) As Ordered ONE
[2016-09-15 18:47] LABS: ALBUMIN 3.4 GM/DL (3.2-5.2); ALBUMIN/GLOBULIN RATIO 1.06 (1.00-1.93); ALKALINE PHOSPHATASE 93 U/L (45-117); ALT/SGPT 35 U/L (12-78); ANION GAP 6 MEQ/L (8-16); AST/SGOT 15 U/L (15-37); BILIRUBIN,TOTAL 0.4 MG/DL (0.2-1.0); BLOOD UREA NITROGEN 7 MG/DL (7-18); CALCIUM LEVEL 8.7 MG/DL (8.5-10.1); CARBON DIOXIDE LEVEL 25 MEQ/L (21-32); CHLORIDE LEVEL 109 MEQ/L (98-107); CHOLESTEROL LEVEL 174 MG/DL (<200); CREATININE FOR GFR 0.61 MG/DL (0.55-1.02); GLOMERULAR FILTRATION RATE > 60.0 (>60); GLUCOSE, FASTING 82 MG/DL (70-105); SODIUM LEVEL 140 MEQ/L (136-145); T UPTAKE 36 % (30-39); THYROXINE (T4) 8.6 UG/DL (4.5-12.0); TOTAL PROTEIN 6.6 GM/DL (6.4-8.2); TRIGLYCERIDES LEVEL 335 MG/DL (<150)
[2016-09-15 20:20] LABS: BASO # 0.1 K/mm3 (0.0-0.2); BASO % 0.4 % (0.0-1.0); EOS # 0.2 K/mm3 (0.0-0.50); EOS % 1.1 % (0.0-3.0); LYMPH # 4.7 K/mm3 (1.5-4.5); LYMPH % 32.5 % (24.0-44.0); MEAN CORPUSCULAR HEMOGLOBIN 33.2 pg (27.0-33.0); MEAN CORPUSCULAR HGB CONC 34.7 g/dl (32.0-36.5); MEAN CORPUSCULAR VOLUME 95.6 fl (80.0-96.0); MONO # 0.8 K/mm3 (0.0-0.8); MONO % 5.5 % (0.0-5.0); NEUTROPHILS # 8.2 K/mm3 (1.8-7.7); NEUTROPHILS % 59.2 % (36.0-66.0); RED CELL DISTRIBUTION WIDTH 12.8 % (11.5-14.5); WHITE BLOOD COUNT 13.9 K/mm3 (4.0-10.0)
== END ==
LOC: M WUC 11:22
PROVIDERS: ATTEND Physician Assistant Medical
DX: E03.9 Hypothyroidism, unspecified (principal); E55.9 Vitamin D deficiency, unspecified; E78.2 Mixed hyperlipidemia

== ENCOUNTER → 2016-09-15 | Outpatient (CLI) | payer OTHER | LOC: M RAD 15:51 | PROVIDERS: ATTEND Physician Assistant Medical | DX: M51.36 Other intervertebral disc degeneration, lumbar region (principal) ==

== ENCOUNTER → 2016-09-16 | Outpatient (CLI) | payer OTHER ==
[~2016-09-16] MED LIST changes: +GASTROGRAFIN SOLUTION 30ML (Q9963) As Ordered ONE; +ISOVUE-370 76% 100ML VIAL (Q9967) As Ordered ONE
--- NOTE | 2016-09-17 01:01 | REP ---
Clinical: Abdominal pain. Technique: Axial contrast enhanced images from the lung bases to the pubic symphysis using oral and 100 ml Isovue 370 intravenous contrast material with coronal and sagittal re-formations. Comparison: 06/12/2016. Findings: Lung bases are clear. Liver, spleen, pancreas, gallbladder, bilateral adrenal glands and kidneys are normal. The enteric system is without obstruction or acute inflammatory process. Pelvis demonstrates normal bladder and suggestion for myomatous changes to the uterus. No pelvic fluid or ascites. No adenopathy. No free air. Vasculature appears normal. Musculoskeletal structures are intact. Impression: 1. No acute intra-abdominal or pelvic pathology appreciated. 2. Possible myomatous changes to the uterus. 3. Previously noted enteritis has resolved. Signed by Jorge Luis Goodrich MD 09/17/2016 12:53 A
== END ==
LOC: M RAD 15:50
PROVIDERS: ATTEND Physician Assistant Medical
DX: R10.84 Generalized abdominal pain (principal)

== ENCOUNTER → 2016-11-03 | Outpatient (CLI) | payer OTHER ==
[~2016-11-03] MED LIST changes: -AUGM875T27 PO; +AUGM875T28 PO; -GASTROGRAFIN SOLUTION 30ML (Q9963) As Ordered ONE; -ISOVUE-370 76% 100ML VIAL (Q9967) As Ordered ONE; +VITA1CAP40 PO; -VITA50003 PO
--- NOTE | 2016-11-03 15:19 | REP ---
MAXILLOFACIAL CT WITHOUT CONTRAST: HISTORY: Chronic maxillary sinusitis. COMPARISON: 06/28/2014 The right frontal sinus is hypoplastic. The sinuses are clear. The osteomeatal units are patent. The middle and inferior nasal turbinates are partially paradoxical. There is minimal deviation of the nasal septum to the right. The cribriform plate, medial hale of the orbits and optic canals are intact. The carotid canals form a segment of the posterolateral hale of the sphenoid sinus. The sphenoid sinus septa insert into the internal carotid canal hale. Calcification is present in the right tonsil. This is secondary to previous inflammatory disease. IMPRESSION: There is no acute or chronic sinusitis. Signed by Ronald Tubbs MD 11/03/2016 03:33 P
== END ==
LOC: M RAD 14:53
PROVIDERS: ATTEND Specialist
DX: J32.0 Chronic maxillary sinusitis (principal); J34.2 Deviated nasal septum

== ENCOUNTER → 2017-04-23 | Outpatient (CLI) | payer OTHER ==
[2017-04-23 20:58] LABS: HEMATOCRIT 44.1 % (36.0-47.0); MEAN CORPUSCULAR HEMOGLOBIN 32.8 pg (27.0-33.0); MEAN CORPUSCULAR VOLUME 96.5 fl (80.0-96.0); PLATELET COUNT, AUTOMATED 296 10^3/uL (150-450); RED BLOOD COUNT 4.57 10^6/uL (4.00-5.40); RED CELL DISTRIBUTION WIDTH 13.1 % (11.5-14.5)
[2017-04-23 21:13] LABS: ADD MANUAL DIFFER YES; DIFF SLIDE NUMBER 243; POSITIVE DIFF POS FLAG; WHITE BLOOD COUNT 16.4 10^3/uL (4.0-10.0)
[2017-04-23 21:17] LABS: ESTIMATED AVERAGE GLUCOSE 105 MG/DL (60-110); HEMOGLOBIN A1c 5.3 %
[2017-04-23 21:21] LABS: ALBUMIN 3.6 GM/DL (3.2-5.2); ALBUMIN/GLOBULIN RATIO 1.06 (1.00-1.93); ALKALINE PHOSPHATASE 108 U/L (45-117); ALT/SGPT 28 U/L (12-78); ANION GAP 7 MEQ/L (8-16); AST/SGOT 11 U/L (7-37); BILIRUBIN,TOTAL 0.2 MG/DL (0.2-1.0); BLOOD UREA NITROGEN 17 MG/DL (7-18); CALCIUM LEVEL 8.7 MG/DL (8.5-10.1); CARBON DIOXIDE LEVEL 25 MEQ/L (21-32); CHLORIDE LEVEL 107 MEQ/L (98-107); CHOLESTEROL LEVEL 175 MG/DL (<200); CHOLESTEROL RISK RATIO 4.069 (<5); CREATININE FOR GFR 0.62 MG/DL (0.55-1.02); GLOMERULAR FILTRATION RATE > 60.0 (>60); GLUCOSE, FASTING 83 MG/DL (70-100); HDL CHOLESTEROL 43 MG/DL (>40); LDL CHOLESTEROL 105.2 MG/DL (<100); NON-HDL-C 132 MG/DL; POTASSIUM SERUM 4.3 MEQ/L (3.5-5.1); SODIUM LEVEL 139 MEQ/L (136-145); TRIGLYCERIDES LEVEL 134 MG/DL (<150)
[2017-04-23 21:22] LABS: TOTAL 25(OH) VITAMIN D 26.6 NG/ML (30.0-100.0)
[2017-04-23 21:23] LABS: VITAMIN B12 LEVEL 522 PG/ML (247-911)
[2017-04-23 21:56] LABS: ATYPICAL LYMPH 6 % (0-5); BASOPHILS 1 % (0-4); EOSINOPHILS 2 % (0-5); LYMPHOCYTES 41 % (16-52); MONOCYTES 3 % (0-8); NEUTROPHILS 47 % (35-75); PLATELET ESTIMATE NORMAL (NORMAL)
== END ==
LOC: M WUC 13:17
DX: F41.1 Generalized anxiety disorder (principal)
CPT/HCPCS: 84443

== ENCOUNTER → 2017-08-05 | Outpatient (CLI) | payer OTHER | LOC: M RAD 13:53 | DX: M79.605 Pain in left leg (principal) | CPT/HCPCS: 93971 ==

== ENCOUNTER → 2017-09-10 | Outpatient (CLI) | payer OTHER | LOC: M WUC 13:12 | DX: M47.896 Other spondylosis, lumbar region (principal); M47.892 Other spondylosis, cervical region | CPT/HCPCS: 72052 ==

== ENCOUNTER → 2017-09-21 | Outpatient (CLI) | payer OTHER ==
[~2017-09-21] MED LIST changes: -AUGM875T28 PO; -CYCL10TA PO; -DEPO150I IM; -HYDR-3713 PO; -LORT1TAB PO; -LYRI75CA PO; -MAGN400T2 PO; -MAXA5TAB10 PO; -MEDR15VL IM; -NORC1TAB4 PO; -PRIL20CA9 PO; +PROHANCE 279.3MG/ML 15ML VIAL (A9576) As Ordered; -VITA-113 SL; -VITA1CAP40 PO; -ZOFR20TA PO
== END ==
LOC: M RAD 13:12
DX: M72.2 Plantar fascial fibromatosis (principal)
CPT/HCPCS: A9576

== ENCOUNTER → 2017-10-26 | Outpatient (CLI) | payer OTHER ==
[2017-10-26 16:41] LABS: HEMATOCRIT 42.3 % (36.0-47.0); HEMOGLOBIN 14.9 g/dl (12.0-15.5); MEAN CORPUSCULAR HEMOGLOBIN 33.2 pg (27.0-33.0); MEAN CORPUSCULAR HGB CONC 35.2 g/dl (32.0-36.5); MEAN CORPUSCULAR VOLUME 94.2 fl (80.0-96.0); PLATELET COUNT, AUTOMATED 285 10^3/uL (150-450); RED BLOOD COUNT 4.49 10^6/uL (4.00-5.40); RED CELL DISTRIBUTION WIDTH 12.6 % (11.5-14.5); WHITE BLOOD COUNT 15.9 10^3/uL (4.0-10.0)
[2017-10-26 16:48] LABS: ANION GAP 8 MEQ/L (8-16); BLOOD UREA NITROGEN 8 MG/DL (7-18); CARBON DIOXIDE LEVEL 26 MEQ/L (21-32); CHLORIDE LEVEL 108 MEQ/L (98-107); CREATININE FOR GFR 0.62 MG/DL (0.55-1.30); GLOMERULAR FILTRATION RATE > 60.0 (>60); GLUCOSE, FASTING 83 MG/DL (70-100); POTASSIUM SERUM 3.9 MEQ/L (3.5-5.1); SODIUM LEVEL 142 MEQ/L (136-145)
== END ==
LOC: M WUC 11:51
DX: Z01.812 Encounter for preprocedural laboratory examination (principal); M72.2 Plantar fascial fibromatosis
CPT/HCPCS: 80048

== ENCOUNTER 2017-11-03 09:04 | Day surgery (SDC) | payer OTHER ==
[2017-11-03] MEDS ORDERED: PROPOFOL 200 MG/20 ML VIAL As Ordered ×3 (09:12)
[2017-11-03] MEDS ORDERED: MIDAZOLAM INJ 2 MG/2 ML VIAL (J2250) As Ordered (09:13)
[2017-11-03] MEDS ORDERED: fentaNYL 100 MCG/2 ML INJECTION (J3010) As Ordered (09:13)
[2017-11-03] MEDS ORDERED: ceFAZolin 2 GM/D5W 50 ML IV BAG (J0690 PER 500MG) As Ordered (09:24)
[2017-11-03] MEDS ORDERED: LR 1,000 ML IV ×2 (09:30→11:30)
[2017-11-03 09:53] LABS: CONTROL LINE UCG INT CTR LINE PRESENT; URINE PREG TEST NEGATIVE (NEGATIVE)
[2017-11-03] MEDS: LIDOCAINE 1% MDV 20ML VIAL As Ordered (10:39)
[2017-11-03] MEDS: BUPIVACAINE HCL 0.5% 10 ML VIAL As Ordered (10:39)
[2017-11-03] MEDS: dexameTHASONE 4 MG/ML 1ML VIAL (J1100) As Ordered (10:39)
[2017-11-03] MEDS ORDERED: PERCOCET 5MG/325MG TAB PO (11:30)
[2017-11-03] MEDS ORDERED: ONDANSETRON 4MG/2ML VIAL (J2405) IV (11:30)
== END 2017-11-03 11:37 | disposition home or self-care (01) ==
LOC: M SDC 09:04
DX: M72.2 Plantar fascial fibromatosis (principal); K21.9 Gastro-esophageal reflux disease without esophagitis; F41.9 Anxiety disorder, unspecified; F32.9 Major depressive disorder, single episode, unspecified; Z88.8 Allergy status to other drugs, medicaments and biological substances; F17.210 Nicotine dependence, cigarettes, uncomplicated; Z79.899 Other long term (current) drug therapy
CPT/HCPCS: 29893

== ENCOUNTER 2018-03-06 14:31 | Emergency (ER) | payer OTHER ==
[2018-03-06] MEDS: NORCO, ANEXSIA 5/325MG TABLET (HYDROcodone/ACETAMINOPHEN) PO (14:56)
== END 2018-03-06 16:18 | disposition home or self-care (01) ==
LOC: M ED 14:31
DX: T14.8XXA Other injury of unspecified body region, initial encounter (principal); W10.8XXA Fall (on) (from) other stairs and steps, initial encounter; Y92.018 Other place in single-family (private) house as the place of occurrence of the external cause; Z79.899 Other long term (current) drug therapy; Z88.1 Allergy status to other antibiotic agents; Z88.5 Allergy status to narcotic agent; Z88.8 Allergy status to other drugs, medicaments and biological substances; F17.210 Nicotine dependence, cigarettes, uncomplicated
CPT/HCPCS: 72072

== ENCOUNTER → 2018-05-11 | Outpatient (CLI) | payer OTHER ==
[~2018-05-11] MED LIST changes: +AUGM875T28 PO; +CYCL10TA PO; +DEPO150I IM; +DIAZ2TAB PO; +HYDR-3713 PO; +LORT1TAB PO; +LYRI150C PO; +LYRI75CA PO; +MAGN400T2 PO; +MAXA5TAB10 PO; +MEDR15VL IM; +NORC1TAB4 PO; +OXYC1TAB23 PO; +PRIL20CA9 PO; -PROHANCE 279.3MG/ML 15ML VIAL (A9576) As Ordered; +ROBA500T PO; +VITA-113 SL; +VITA100T98 PO; +VITA50005 PO; +ZOFR4TAB16 PO
--- NOTE | 2018-05-11 17:16 | REP ---
LEFT SHOULDER, THREE VIEWS: HISTORY: Pain. There is no acute fracture or dislocation. The joint spaces are normal in appearance. IMPRESSION:There is no acute fracture or dislocation. Electronically Signed by Ronald Tubbs MD 05/12/2018 08:14 A
--- NOTE | 2018-05-11 17:17 | REP ---
LEFT HIP, TWO VIEWS: HISTORY: Pain. There is no acute fracture or dislocation. The joint space is normal in appearance. IMPRESSION: There is no acute fracture or dislocation. Electronically Signed by Ronald Tubbs MD 05/12/2018 08:14 A
== END ==
LOC: M WUC 13:50
PROVIDERS: ATTEND Physician Assistant Medical
DX: M25.512 Pain in left shoulder (principal); M25.552 Pain in left hip

== ENCOUNTER 2018-06-11 18:33 | Emergency (ER) | payer OTHER ==
[~2018-06-11] VITALS: Ht 152.4 cm; Wt 77.3 kg
[2018-06-11] MEDS ORDERED: ACETAMINOPHEN TAB 650MG DOSE (2X325MG) PO ONE (19:30)
[2018-06-11 20:10] LABS: INFLUENZA A AMPLIFICATION NEGATIVE (NEGATIVE); INFLUENZA B AMPLIFICATION NEGATIVE (NEGATIVE)
--- NOTE | 2018-06-11 20:34 | REP ---
Chest two views HISTORY: Decreased breath sounds Comparison: 06/13/2016 The lungs are clear. The heart is normal in size. The pulmonary vasculature is normal in appearance. The bony structure is intact. IMPRESSION: No acute disease. Electronically Signed by Ronald Tubbs MD 06/11/2018 08:26 P
[2018-06-11] MEDS ORDERED: CLAR1TAB2 PO (20:37)
[2018-06-11 21:03] VITALS: BP 114/78
== END 2018-06-11 21:04 | disposition home or self-care (01) ==
LOC: M ED 18:33
DX: J06.9 Acute upper respiratory infection, unspecified (principal); M79.10 Myalgia, unspecified site; M54.9 Dorsalgia, unspecified; G89.29 Other chronic pain; F17.210 Nicotine dependence, cigarettes, uncomplicated; Z88.5 Allergy status to narcotic agent; Z88.8 Allergy status to other drugs, medicaments and biological substances; Z88.1 Allergy status to other antibiotic agents; Z79.899 Other long term (current) drug therapy

== ENCOUNTER → 2018-07-25 | Outpatient (CLI) | payer OTHER ==
[~2018-07-25] MED LIST changes: +CLAR1TAB2 PO; -MEDR15VL IM; -NORC1TAB4 PO; +NORC1TAB7 PO
[2018-07-25 14:47] LABS: HEMATOCRIT 42.8 % (36.0-47.0); HEMOGLOBIN 14.9 g/dl (12.0-15.5); MEAN CORPUSCULAR HEMOGLOBIN 32.1 pg (27.0-33.0); MEAN CORPUSCULAR HGB CONC 34.8 g/dl (32.0-36.5); MEAN CORPUSCULAR VOLUME 92.2 fl (80.0-96.0); PLATELET COUNT, AUTOMATED 297 10^3/uL (150-450); RED BLOOD COUNT 4.64 10^6/uL (4.00-5.40); WHITE BLOOD COUNT 15.8 10^3/uL (4.0-10.0)
[2018-07-25 15:13] LABS: HEMOGLOBIN A1c 5.8 %
[2018-07-25 15:18] LABS: ALBUMIN 3.7 GM/DL (3.2-5.2); ALT/SGPT 31 U/L (12-78); BILIRUBIN,TOTAL 0.4 MG/DL (0.2-1.0); BLOOD UREA NITROGEN 7 MG/DL (7-18); CALCIUM LEVEL 8.7 MG/DL (8.5-10.1); CARBON DIOXIDE LEVEL 25 MEQ/L (21-32); CHLORIDE LEVEL 107 MEQ/L (98-107); CHOLESTEROL LEVEL 174 MG/DL (<200); CHOLESTEROL RISK RATIO 6.692 (<5); CREATININE FOR GFR 0.65 MG/DL (0.55-1.30); GLOMERULAR FILTRATION RATE > 60.0 (>60); GLUCOSE, FASTING 87 MG/DL (70-100); HDL CHOLESTEROL 26 MG/DL (>40); LDL CHOLESTEROL 78 MG/DL (<100); NON-HDL-C 148 MG/DL; SODIUM LEVEL 140 MEQ/L (136-145); THYROXINE (T4) 8.7 UG/DL (4.5-12.0); TOTAL 25(OH) VITAMIN D 46.3 NG/ML (30.0-100.0); TOTAL PROTEIN 6.8 GM/DL (6.4-8.2); TRIGLYCERIDES LEVEL 352 MG/DL (<150)
[2018-07-25 15:19] LABS: TOTAL T3 91.5 NG/DL (60.0-181.0)
== END ==
LOC: M LAB 14:11
PROVIDERS: ATTEND Family Medicine
DX: D64.9 Anemia, unspecified (principal); R53.83 Other fatigue; E03.9 Hypothyroidism, unspecified

== ENCOUNTER 2018-11-26 23:12 | Emergency (ER) | payer OTHER ==
[~2018-11-26] VITALS: Ht 152.4 cm; Wt 80.9 kg
[2018-11-27] MEDS ORDERED: ADDE20CA3 PO (00:04)
[2018-11-27] MEDS ORDERED: ACYC400T OR (00:04)
[2018-11-27] MEDS ORDERED: ALL10TAB29 OR (00:04)
[2018-11-27] MEDS ORDERED: DOXY100C37 OR (00:04)
[2018-11-27 01:47] LABS: HEMATOCRIT 46.3 % (36.0-47.0); HEMOGLOBIN 16.4 g/dl (12.0-15.5); MEAN CORPUSCULAR HEMOGLOBIN 33.6 pg (27.0-33.0); MEAN CORPUSCULAR HGB CONC 35.4 g/dl (32.0-36.5); MEAN CORPUSCULAR VOLUME 94.9 fl (80.0-96.0); PLATELET COUNT, AUTOMATED 272 10^3/uL (150-450); RED BLOOD COUNT 4.88 10^6/uL (4.00-5.40); WHITE BLOOD COUNT 19.3 10^3/uL (4.0-10.0)
[2018-11-27] MEDS ORDERED: K-TA10TA2 PO (01:50)
[2018-11-27] MEDS ORDERED: LIDO2JELLY TOP (01:51)
[2018-11-27] MEDS ORDERED: TERB250T12 PO (02:03)
[2018-11-27 02:08] VITALS: BP 150/90
[2018-11-27 02:13] LABS: ATYPICAL LYMPH 3 % (0-5); BASOPHILS 1 % (0-1); EOSINOPHILS 3 % (0-3); LYMPHOCYTES 32 % (16-44); MONOCYTES 2 % (0-5); NEUTROPHILS 59 % (28-66)
[2018-11-27 02:14] LABS: PLATELET ESTIMATE NORMAL (NORMAL)
--- NOTE | 2018-11-27 08:28 | REP ---
Clinical: Acute shortness of breath . Comparison: 06/11/2018 . Technique: PA and lateral. Findings: The mediastinum and cardiac silhouette are normal. The lung briceno are clear and without acute consolidation, effusion, or pneumothorax. The skeletal structures are intact and normal. Impression: 1. No acute cardiopulmonary process. Electronically Signed by Jorge Luis Goodrich MD 11/27/2018 08:20 A
== END 2018-11-27 02:10 | disposition home or self-care (01) ==
LOC: M ED 23:12
DX: L98.9 Disorder of the skin and subcutaneous tissue, unspecified (principal); B35.0 Tinea barbae and tinea capitis; E83.51 Hypocalcemia; J02.9 Acute pharyngitis, unspecified; F17.210 Nicotine dependence, cigarettes, uncomplicated; Z88.1 Allergy status to other antibiotic agents; Z88.5 Allergy status to narcotic agent; Z88.6 Allergy status to analgesic agent; Z79.899 Other long term (current) drug therapy; Z79.2 Long term (current) use of antibiotics

== ENCOUNTER → 2018-12-07 | Outpatient (REF) | payer OTHER ==
[~2018-12-07] MED LIST changes: +ACYC400T OR; +ADDE20CA3 PO; +ALL10TAB29 OR; +DOXY100C37 OR; +FLON27.5 NARES; +K-TA10TA2 PO; +LIDO2JELLY TOP; +TERB250T12 PO
== END ==
LOC: M SFHCPLAZ 17:42
PROVIDERS: ATTEND Dermatology
DX: L08.9 Local infection of the skin and subcutaneous tissue, unspecified (principal)

== ENCOUNTER 2018-12-10 23:09 | Emergency (ER) | payer OTHER ==
[~2018-12-10] VITALS: Ht 152.4 cm; Wt 80.9 kg
[2018-12-10 23:09] VITALS: BP 158/88
[~2018-12-10 23:09] MED LIST changes: -FLON27.5 NARES
[2018-12-11] MEDS ORDERED: AUGM875T28 PO (00:18)
[2018-12-11] MEDS ORDERED: FLON27.5 NARES (00:18)
[2018-12-11] MEDS ORDERED: AUGMENTIN 875 MG TAB PO ONE (00:30)
== END 2018-12-11 00:35 | disposition home or self-care (01) ==
LOC: M ED 23:09
DX: H66.92 Otitis media, unspecified, left ear (principal); M79.7 Fibromyalgia

== ENCOUNTER → 2019-02-15 | Outpatient (REF) | payer OTHER ==
[~2019-02-15] MED LIST changes: +FLON27.5 NARES
[2019-02-15 17:24] LABS: HEMATOCRIT 44.6 % (36.0-47.0); HEMOGLOBIN 15.1 g/dl (12.0-15.5); MEAN CORPUSCULAR HEMOGLOBIN 33.3 pg (27.0-33.0); MEAN CORPUSCULAR HGB CONC 33.9 g/dl (32.0-36.5); MEAN CORPUSCULAR VOLUME 98.2 fl (80.0-96.0); PLATELET COUNT, AUTOMATED 264 10^3/uL (150-450); RED BLOOD COUNT 4.54 10^6/uL (4.00-5.40); WHITE BLOOD COUNT 11.9 10^3/uL (4.0-10.0)
[2019-02-15 17:30] LABS: ALBUMIN 3.8 GM/DL (3.2-5.2); ALT/SGPT 43 U/L (12-78); BILIRUBIN,TOTAL 0.5 MG/DL (0.2-1.0); BLOOD UREA NITROGEN 10 MG/DL (7-18); CALCIUM LEVEL 9.4 MG/DL (8.5-10.1); CARBON DIOXIDE LEVEL 27 MEQ/L (21-32); CHLORIDE LEVEL 111 MEQ/L (98-107); CREATININE FOR GFR 0.75 MG/DL (0.55-1.30); GLOMERULAR FILTRATION RATE > 60.0 (>60); GLUCOSE, FASTING 79 MG/DL (70-100); POTASSIUM SERUM 4.1 MEQ/L (3.5-5.1); SODIUM LEVEL 143 MEQ/L (136-145); TOTAL PROTEIN 6.8 GM/DL (6.4-8.2)
[2019-02-15 17:38] LABS: TOTAL 25(OH) VITAMIN D 66.1 NG/ML (30.0-100.0); VITAMIN B12 LEVEL 725 PG/ML
[2019-02-15 17:58] LABS: ATYPICAL LYMPH 1 % (0-5); BASOPHILS 1 % (0-1); LYMPHOCYTES 35 % (16-44); MONOCYTES 8 % (0-5); NEUTROPHILS 55 % (28-66); PLATELET ESTIMATE NORMAL (NORMAL)
== END ==
LOC: M LABNEURO 14:32
PROVIDERS: ATTEND Physician Assistant Medical
DX: R51 Headache (principal); M54.5 Low back pain; M54.2 Cervicalgia; G62.9 Polyneuropathy, unspecified

== ENCOUNTER → 2019-06-12 | Outpatient (CLI) | payer OTHER ==
--- NOTE | 2019-06-12 20:17 | REP ---
Clinical: Pain. Sciatica. Comparison: 03/06/2018 . Technique: AP, lateral, bilateral oblique, and coned-down views. Findings: Alignment and lordosis is maintained. The vertebral bodies including transverse process and spinous processes are intact and there is no evidence for acute fracture / compression injury or subluxation. No evidence for spondylolysis or spondylolisthesis. Lateral view best demonstrates subtle increase sclerosis with very early spurring and hypertrophic facet changes primarily involving L4-5 and L5-S1. Impression: Mild degenerative changes primarily involving L4-5 and L5-S1. Electronically Signed by Jorge Luis Goodrich MD 06/12/2019 08:08 P
== END ==
LOC: M RAD 13:03
PROVIDERS: ATTEND Family Medicine
DX: M54.5 Low back pain (principal)

== ENCOUNTER 2019-06-30 16:15 | Emergency (ER) | payer OTHER ==
[~2019-06-30] VITALS: Ht 152.4 cm; Wt 70.5 kg
[2019-06-30] MEDS ORDERED: DEPO150I12 IM (16:24)
[2019-06-30] MEDS ORDERED: AMOX500C PO (16:33)
[2019-06-30] MEDS ORDERED: FLON1SPR NARES (17:07)
[2019-06-30] MEDS ORDERED: CLAR1TAB13 PO (17:07)
[2019-06-30] MEDS ORDERED: BENZ200C70 PO (17:07)
[2019-06-30 18:09] VITALS: BP 141/96
--- NOTE | 2019-06-30 18:46 | REP ---
CHEST, SINGLE VIEW: There is no evidence of acute infiltrate. No pleural effusion is seen. The heart is normal in size. The mediastinal silhouette is unremarkable. The visualized osseous structures are intact. IMPRESSION: No acute pulmonary disease. Electronically Signed by Juve St MD 06/30/2019 11:26 P
== END 2019-06-30 18:19 | disposition home or self-care (01) ==
LOC: M ED 16:15
DX: J30.9 Allergic rhinitis, unspecified (principal); J02.9 Acute pharyngitis, unspecified; R05 Cough; F17.210 Nicotine dependence, cigarettes, uncomplicated; Z88.6 Allergy status to analgesic agent; Z88.5 Allergy status to narcotic agent; Z88.1 Allergy status to other antibiotic agents; Z79.899 Other long term (current) drug therapy; Z79.2 Long term (current) use of antibiotics

== ENCOUNTER → 2019-08-24 | Outpatient (CLI) | payer OTHER ==
[~2019-08-24] MED LIST changes: +AMOX500C PO; +BENZ200C70 PO; +CLAR1TAB13 PO; +CYCL-707 PO; -CYCL10TA PO; +DEPO150I12 IM; +FLON1SPR NARES
[2019-08-24 13:09] LABS: BASO # 0.1 10^3/uL (0.0-0.2); BASO % 0.3 % (0.0-1.0); EOS # 0.2 10^3/uL (0.0-0.5); EOS % 1.2 % (0.0-3.0); HEMATOCRIT 45.7 % (36.0-47.0); HEMOGLOBIN 15.8 g/dl (12.0-15.5); LYMPH # 4.2 10^3/uL (1.5-5.0); MEAN CORPUSCULAR HGB CONC 34.6 g/dl (32.0-36.5); MEAN CORPUSCULAR VOLUME 95.4 fl (80.0-96.0); MONO # 0.8 10^3/uL (0.0-0.8); MONO % 5.3 % (0.0-5.0); NEUTROPHILS # 10.3 10^3/uL (1.5-8.5); NEUTROPHILS % 65.6 % (36.0-66.0); PLATELET COUNT, AUTOMATED 274 10^3/uL (150-450); RED BLOOD COUNT 4.79 10^6/uL (4.00-5.40); WHITE BLOOD COUNT 15.6 10^3/uL (4.0-10.0)
[2019-08-24 13:10] LABS: APPEARANCE, URINE CLOUDY (CLEAR); BACTERIA, URINE AUTO 2+ (NEGATIVE); BILIRUBIN, URINE AUTO NEGATIVE (NEGATIVE); BLOOD, URINE BLOOD NEGATIVE (NEGATIVE); COLOR, URINE YELLOW (YELLOW); GLUCOSE, URINE (UA) AUTO NEGATIVE (NEGATIVE); KETONE, URINE AUTO NEGATIVE (NEGATIVE); LEUKOCYTE ESTERASE, URINE AUTO TRACE (NEGATIVE); NITRITE, URINE AUTO NEGATIVE (NEGATIVE); PROTEIN, URINE AUTO NEGATIVE (NEGATIVE); RBC, URINE AUTO 1 /HPF (0-3); SPECIFIC GRAVITY URINE AUTO 1.018 (1.002-1.035); SQUAMOUS EPITHELIAL CELL UR AU 6 /HPF (0-6); UROBILINOGEN, URINE AUTO 0.2 mg/dL (0.0-2.0); WBC, URINE AUTO 2 /HPF (0-3)
[2019-08-24 13:37] LABS: ALBUMIN 3.6 GM/DL (3.2-5.2); ALT/SGPT 31 U/L (12-78); BILIRUBIN,TOTAL 0.2 MG/DL (0.2-1.0); BLOOD UREA NITROGEN 12 MG/DL (7-18); C REACTIVE PROTEIN QUANTITATIV 0.35 MG/DL (0.00-0.30); CALCIUM LEVEL 8.8 MG/DL (8.5-10.1); CARBON DIOXIDE LEVEL 25 MEQ/L (21-32); CHLORIDE LEVEL 107 MEQ/L (98-107); COMPLEMENT C3 167 MG/DL (90-180); COMPLEMENT C4 27 MG/DL (10-40); CREATININE FOR GFR 0.66 MG/DL (0.55-1.30); GLOMERULAR FILTRATION RATE > 60.0 (>60); GLUCOSE, FASTING 110 MG/DL (70-100); POTASSIUM SERUM 3.9 MEQ/L (3.5-5.1); RHEUMATOID FACTOR QUANT < 10.0 IU/ML (<15.0); SODIUM LEVEL 142 MEQ/L (136-145); TOTAL PROTEIN 7.1 GM/DL (6.4-8.2)
[2019-08-24 14:04] LABS: ERYTHROCYTE SEDIMENTATION RATE 5 mm/hr (0-20)
[2019-08-25 09:42] LABS: CRYOGLOBULINS NEGATIVE (NEGATIVE)
[2019-08-29 16:10] LABS: ANA (HEP2) Negative (.); ANCA-ATYPICAL <1:20 titer (Neg:<1:20); CYTOPLASMIC NEUTROP AB ANCA-C <1:20 titer (Neg:<1:20); PERINUCLEAR AB ANCA-P <1:20 titer (Neg:<1:20)
== END ==
LOC: M LAB 12:09
PROVIDERS: ATTEND Dermatology
DX: R21 Rash and other nonspecific skin eruption (principal)

== ENCOUNTER 2019-10-14 14:01 | Emergency (ER) | payer OTHER ==
[~2019-10-14] VITALS: Ht 152.4 cm; Wt 77.2 kg
[2019-10-14 14:01] VITALS: BP 130/89
[~2019-10-14 14:01] MED LIST changes: -ALL10TAB29 OR; +CETI-24 OR
[2019-10-14] MEDS ORDERED: MAGIC MOUTHWASH SUSPENSION BTL SS STA (16:24)
[2019-10-14] MEDS ORDERED: MAGICMW SSP (17:07)
[2019-10-14] MEDS ORDERED: PSEU120T19 PO (17:07)
--- NOTE | 2019-10-15 09:28 | REP ---
TWO-VIEW CHEST: REASON: Cough. COMPARISON: No priors. FINDINGS: The superior mediastinal structures are midline. The cardiac silhouette is unremarkable in size, shape, and position. The diaphragmatic surfaces of the lungs are regular, and the costophrenic angles are clear. The pulmonary briceno are clear. The imaged osseous structures are intact. IMPRESSION: There is no acute cardiopulmonary disease. Electronically Signed by Chiki Biggs DO 10/15/2019 09:39 A
== END 2019-10-14 17:12 | disposition home or self-care (01) ==
LOC: M ED 14:01
DX: J02.9 Acute pharyngitis, unspecified (principal); R05 Cough; R53.83 Other fatigue; F17.200 Nicotine dependence, unspecified, uncomplicated; Z88.6 Allergy status to analgesic agent; Z88.5 Allergy status to narcotic agent; Z88.1 Allergy status to other antibiotic agents; Z79.899 Other long term (current) drug therapy

== ENCOUNTER → 2019-11-03 | Outpatient (REF) | payer OTHER ==
[~2019-11-03] MED LIST changes: +LIDO5DIS41 TOP; +MAGICMW SSP; +PSEU120T19 PO
== END ==
LOC: M LAB REF 10:52
PROVIDERS: ATTEND Physician Assistant
DX: A08.39 Other viral enteritis (principal)

== ENCOUNTER → 2019-12-14 | Outpatient (CLI) | payer OTHER ==
[2019-12-14 16:21] LABS: IMMUNOGLOBULIN M 63.1 MG/DL (40-230)
[2019-12-18 18:07] LABS: CHROMOGRANIN A 97.3 ng/mL (0.0-101.8); HISTAMINE PLASMA 0.43 ng/mL (<1.00); IMMUNOGLOBULIN D <1.28 mg/dL (<14.11); IgG SERUM (part of Subclasses) 784 mg/dL (586-1602); IgG Subclass 1 421 mg/dL (248-810); IgG Subclass 2 326 mg/dL (130-555); IgG Subclass 3 57 mg/dL (15-102); IgG Subclass 4 82 mg/dL (2-96); TRYPTASE 5.3 ug/L (2.2-13.2)
== END ==
LOC: M LAB 14:28
PROVIDERS: ATTEND Dermatology
DX: R21 Rash and other nonspecific skin eruption (principal)

== ENCOUNTER → 2019-12-14 | Outpatient (CLI) | payer OTHER ==
[2019-12-14 15:42] LABS: HEMATOCRIT 43.6 % (36.0-47.0); HEMOGLOBIN 15.1 g/dl (12.0-15.5); MEAN CORPUSCULAR HEMOGLOBIN 32.7 pg (27.0-33.0); MEAN CORPUSCULAR HGB CONC 34.6 g/dl (32.0-36.5); MEAN CORPUSCULAR VOLUME 94.4 fl (80.0-96.0); PLATELET COUNT, AUTOMATED 300 10^3/uL (150-450); RED BLOOD COUNT 4.62 10^6/uL (4.00-5.40); WHITE BLOOD COUNT 10.9 10^3/uL (4.0-10.0)
[2019-12-14 16:21] LABS: ALBUMIN 3.6 GM/DL (3.2-5.2); ALT/SGPT 27 U/L (12-78); BILIRUBIN,TOTAL 0.3 MG/DL (0.2-1.0); BLOOD UREA NITROGEN 9 MG/DL (7-18); CALCIUM LEVEL 8.9 MG/DL (8.5-10.1); CARBON DIOXIDE LEVEL 23 MEQ/L (21-32); CHLORIDE LEVEL 109 MEQ/L (98-107); CHOLESTEROL LEVEL 195 MG/DL (<200); CHOLESTEROL RISK RATIO 5.571 (<5); CREATININE FOR GFR 0.65 MG/DL (0.55-1.30); GLOMERULAR FILTRATION RATE > 60.0 (>60); GLUCOSE, FASTING 87 MG/DL (70-100); HDL CHOLESTEROL 35 MG/DL (>40); LDL CHOLESTEROL 124 MG/DL (<100); NON-HDL-C 160 MG/DL; POTASSIUM SERUM 4.2 MEQ/L (3.5-5.1); SODIUM LEVEL 140 MEQ/L (136-145); THYROID STIMULATING HORMONE 0.749 uIU/ML (0.358-3.740); TOTAL PROTEIN 6.7 GM/DL (6.4-8.2); TRIGLYCERIDES LEVEL 181 MG/DL (<150)
[2019-12-14 16:43] LABS: HEMOGLOBIN A1c 5.3 %
[2019-12-14 17:31] LABS: TOTAL 25(OH) VITAMIN D 57.2 NG/ML (30.0-100.0)
--- NOTE | 2019-12-16 16:26 | ECGEPIP ---
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
--- NOTE | 2019-12-28 13:27 | REP ---
CHEST X-RAY: CLINICAL: Anemia, fatigue and hypothyroidism. TECHNIQUE: PA and lateral COMPARISON: 10/14/19 FINDINGS: Mediastinum and cardiac silhouette are normal. Lung briceno are clear. No consolidation, effusion or pneumothorax. Skeletal structures are intact. IMPRESSION: No acute cardiopulmonary process or focal consolidation. MTDD
== END ==
LOC: M LAB 14:31
PROVIDERS: ATTEND Family Medicine
DX: E03.9 Hypothyroidism, unspecified (principal); D64.9 Anemia, unspecified; R53.83 Other fatigue

== ENCOUNTER → 2019-12-21 | Outpatient (REF) | payer OTHER | LOC: M SFHCPLAZ 13:55 | PROVIDERS: ATTEND Dermatology | DX: R21 Rash and other nonspecific skin eruption (principal) ==

== ENCOUNTER 2020-01-25 15:32 | Emergency (ER) | payer OTHER ==
[~2020-01-25] VITALS: Ht 152.4 cm; Wt 80.9 kg
[~2020-01-25 15:32] MED LIST changes: -LIDO5DIS41 TOP
[2020-01-25] MEDS ORDERED: LIDOCAINE 5% (LIDODERM) PATCH TD ONE (17:15)
--- NOTE | 2020-01-25 17:24 | REP ---
INDICATION: Abdominal Pain COMPARISON: None. TECHNIQUE: PA and lateral. FINDINGS: The mediastinum and cardiac silhouette are normal. The lung briceno are clear and without acute consolidation, effusion, or pneumothorax. The skeletal structures are intact and normal. IMPRESSION: No acute cardiopulmonary process. No free air below diaphragm. <Electronically signed by Jorge Luis Goodrich > 01/25/20 [id number]
[2020-01-25 17:46] LABS: BASO # 0.1 10^3/uL (0.0-0.2); BASO % 0.3 % (0.0-1.0); EOS # 0.1 10^3/uL (0.0-0.5); EOS % 0.5 % (0.0-3.0); HEMATOCRIT 44.8 % (36.0-47.0); HEMOGLOBIN 15.2 g/dl (12.0-15.5); LYMPH # 3.9 10^3/uL (1.5-5.0); LYMPH % 18.3 % (24.0-44.0); MEAN CORPUSCULAR HGB CONC 33.9 g/dl (32.0-36.5); MEAN CORPUSCULAR VOLUME 94.3 fl (80.0-96.0); MONO # 1.6 10^3/uL (0.0-0.8); MONO % 7.2 % (0.0-5.0); NEUTROPHILS # 15.6 10^3/uL (1.5-8.5); NEUTROPHILS % 73.2 % (36.0-66.0); PLATELET COUNT, AUTOMATED 315 10^3/uL (150-450); RED BLOOD COUNT 4.75 10^6/uL (4.00-5.40); WHITE BLOOD COUNT 21.4 10^3/uL (4.0-10.0)
[2020-01-25 18:29] LABS: ALBUMIN 3.7 GM/DL (3.2-5.2); ALT/SGPT 23 U/L (12-78); BILIRUBIN,DIRECT 0.2 MG/DL (0.0-0.2); BILIRUBIN,TOTAL 0.9 MG/DL (0.2-1.0); CK-MB VALUE MASS 1.2 NG/ML (<3.6); CPK CREATINE PHOSPHOKINASE 55 U/L (26-192); LIPASE 47 U/L (73-393); MB/CK RELATIVE INDEX 2.18 (< OR =4); TOTAL PROTEIN 7.3 GM/DL (6.4-8.2); TROPONIN I < 0.02 NG/ML (< 0.10)
[2020-01-25] MEDS ORDERED: ISOVUE-370 76% 100ML VIAL As Ordered ONE (18:52)
--- NOTE | 2020-01-25 19:44 | REPVR ---
PROCEDURE INFORMATION: Exam: CT Abdomen And Pelvis With Contrast Exam date and time: 01/25/2020 7:05 PM Age: 34 years old Clinical indication: Abdominal pain; Generalized; Additional info: "pain between my shoulder blades", verterbral tenderness TECHNIQUE: Imaging protocol: Computed tomography of the abdomen and pelvis with intravenous contrast. Radiation optimization: All CT scans at this facility use at least one of these dose optimization techniques: automated exposure control; mA and/or kV adjustment per patient size (includes targeted exams where dose is matched to clinical indication); or iterative reconstruction. Contrast material: ISOVUE 370; Contrast volume: 100 ml; Contrast route: INTRAVENOUS (IV); COMPARISON: CT ABD PELVIS WITH CONTRAST 09/16/2016 5:50 PM FINDINGS: Liver: There is a diffuse decrease in hepatic parenchymal density, consistent with steatosis. Gallbladder and bile ducts: Normal. No calcified stones. No ductal dilation. Pancreas: Normal. No ductal dilation. Spleen: Normal. No splenomegaly. Adrenal glands: Normal. No mass. Kidneys and ureters: Small renal cysts measure up to 5 mm. No complex features. No follow-up suggested. Kidneys otherwise unremarkable. Stomach and bowel: Unremarkable. No obstruction. No mucosal thickening. Appendix: No evidence of appendicitis. Intraperitoneal space: Unremarkable. No free air. No significant fluid collection. Vasculature: Unremarkable. No abdominal aortic aneurysm. Lymph nodes: Unremarkable. No enlarged lymph nodes. Urinary bladder: Unremarkable as visualized. Reproductive: Unremarkable as visualized. Bones/joints: Unremarkable. No acute fracture. Soft tissues: Unremarkable. IMPRESSION: 1. There is a diffuse decrease in hepatic parenchymal density, consistent with steatosis. 2. No acute findings. Electronically signed by: Jose Miguel Duggan On 01/25/2020 19:44:44 PM
--- NOTE | 2020-01-25 19:49 | REPVR ---
PROCEDURE INFORMATION: Exam: CT Angiography Chest With Contrast Exam date and time: 01/25/2020 7:05 PM Age: 34 years old Clinical indication: Pain; Other: Shoulder blade; Additional info: "pain between my shoulder blades", verterbral tenderness TECHNIQUE: Imaging protocol: Computed tomographic angiography of the chest with intravenous contrast. 3D rendering (Not supervised by radiologist): MIP and/or 3D reconstructed images were created by the technologist. Radiation optimization: All CT scans at this facility use at least one of these dose optimization techniques: automated exposure control; mA and/or kV adjustment per patient size (includes targeted exams where dose is matched to clinical indication); or iterative reconstruction. Contrast material: ISOVUE 370; Contrast volume: 100 ml; Contrast route: INTRAVENOUS (IV); COMPARISON: No relevant prior studies available. FINDINGS: Pulmonary arteries: There are no pulmonary emboli. Aorta: There is no aortic dissection or aneurysm. Lungs: Unremarkable. No consolidation. No masses. Pleural space: Unremarkable. No pneumothorax. No pleural effusion. Heart: Unremarkable. No cardiomegaly. No pericardial effusion. Lymph nodes: Unremarkable. No enlarged lymph nodes. Bones/joints: Unremarkable. No acute fracture. Soft tissues: Unremarkable. IMPRESSION: 1. There is no aortic dissection or aneurysm. 2. There are no pulmonary emboli. 3. No acute pulmonary parenchymal abnormalities. Electronically signed by: Jose Miguel Duggan On 01/25/2020 19:49:55 PM
[2020-01-25] MEDS ORDERED: POTASSIUM CHLORIDE 10 MEQ SR TABLET PO ONE (20:15)
[2020-01-25 20:25] VITALS: BP 142/89
[2020-01-25] MEDS ORDERED: LIDO5DIS41 TOP (20:25)
[2020-01-25] MEDS ORDERED: **NOTE PATIENT COMMENT** MISC XX SCH (21:00)
--- NOTE | 2020-01-26 07:24 | ECGEPIP ---
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
== END 2020-01-25 20:37 | disposition home or self-care (01) ==
LOC: M ED 15:32
DX: M54.6 Pain in thoracic spine (principal); G89.29 Other chronic pain; E87.6 Hypokalemia; R00.0 Tachycardia, unspecified; D72.829 Elevated white blood cell count, unspecified; K21.9 Gastro-esophageal reflux disease without esophagitis; M19.90 Unspecified osteoarthritis, unspecified site; F41.9 Anxiety disorder, unspecified; F32.9 Major depressive disorder, single episode, unspecified; F17.200 Nicotine dependence, unspecified, uncomplicated; Z88.6 Allergy status to analgesic agent; Z88.5 Allergy status to narcotic agent; Z88.1 Allergy status to other antibiotic agents; Z79.899 Other long term (current) drug therapy
CPT/HCPCS: 71046; 71275; 74177; 80047; 80076; 81001; 82550; 82553; 83690; 85025; 87086; 93005; 99284; Q9967

== ENCOUNTER → 2020-01-25 | Outpatient (CLI) | payer OTHER ==
--- NOTE | 2020-01-25 15:22 | REP ---
INDICATION: LEFT HIP PAIN AT FILE ROOM. COMPARISON: Comparison radiographs May 11, 2018.. TECHNIQUE: AP and frogleg views. . FINDINGS: There is a 1 cm opacity overlying the left sacrum suggesting a partially digested or undigested tablet. Bowel gas pattern is otherwise unremarkable. The left hemipelvis appears intact the left hip joint space is preserved. Femoral head is smooth and rounded. Periarticular soft tissues are unremarkable. IMPRESSION: No acute abnormality. <Electronically signed by Obed White > 01/25/20 [id number]
== END ==
LOC: M RAD 13:55
PROVIDERS: ATTEND Physician Assistant Medical
DX: M25.552 Pain in left hip (principal)

== ENCOUNTER 2020-02-19 12:58 | Emergency (ER) | payer OTHER ==
[~2020-02-19] VITALS: Ht 152.4 cm; Wt 81.0 kg
[~2020-02-19 12:58] MED LIST changes: +LIDO5DIS41 TOP
[2020-02-19 13:00] VITALS: BP 159/96
[2020-02-19] MEDS ORDERED: NS 1,000 ML IV ONE (13:30)
[2020-02-19] MEDS ORDERED: ONDANSETRON 4MG/2ML VIAL IV ONE (13:30)
[2020-02-19] MEDS ORDERED: cloNIDine HCL 0.1 MG/24 HR PATCH TOP ONE (13:45)
== END 2020-02-19 13:43 | disposition left against medical advice (07) ==
LOC: M ED 12:58
DX: F11.13 Opioid abuse with withdrawal (principal); R68.2 Dry mouth, unspecified; R68.83 Chills (without fever); R61 Generalized hyperhidrosis; M79.7 Fibromyalgia; M62.838 Other muscle spasm; K21.9 Gastro-esophageal reflux disease without esophagitis; F17.200 Nicotine dependence, unspecified, uncomplicated; Z88.6 Allergy status to analgesic agent; Z88.5 Allergy status to narcotic agent; Z88.1 Allergy status to other antibiotic agents; Z79.899 Other long term (current) drug therapy

== ENCOUNTER → 2020-02-28 | Outpatient (REF) | payer OTHER ==
[2020-02-28 17:24] LABS: COMPLEMENT C3 152 MG/DL (90-180); COMPLEMENT C4 21 MG/DL (10-40)
[2020-02-28 17:49] LABS: HEPATITIS B SURFACE ANTIGEN NEGATIVE (NEGATIVE)
[2020-03-02 00:12] LABS: CYCLIC CITRULLINATED PEPTIDE 4 units (0-19); HEPATITIS B CORE ANTIBODY IGG Negative (Negative)
== END ==
LOC: M SFHCRHEU 14:05
PROVIDERS: ATTEND Internal Medicine
DX: R23.1 Pallor (principal); M53.3 Sacrococcygeal disorders, not elsewhere classified

== ENCOUNTER → 2020-02-29 | Outpatient (CLI) | payer OTHER ==
--- NOTE | 2020-03-01 07:03 | REP ---
INDICATION: SACROILIAC PAIN. COMPARISON: None. TECHNIQUE: Four views of the sacroiliac joints FINDINGS: The bilateral sacroiliac joints are symmetric and age-appropriate. No significant arthritic/degenerative changes are appreciated. The osseous structures are intact and normal for age. IMPRESSION: Normal bilateral sacroiliac joint series <Electronically signed by Jorge Luis Goodrich > 03/01/20 0700
== END ==
LOC: M WUC 13:21
PROVIDERS: ATTEND Internal Medicine
DX: M53.3 Sacrococcygeal disorders, not elsewhere classified (principal)

== ENCOUNTER → 2020-03-20 | Outpatient (CLI) | payer OTHER ==
[2020-03-20 16:47] LABS: ALBUMIN 3.6 GM/DL (3.2-5.2); ALT/SGPT 28 U/L (12-78); BILIRUBIN,TOTAL 0.5 MG/DL (0.2-1.0); BLOOD UREA NITROGEN 14 MG/DL (7-18); CALCIUM LEVEL 8.6 MG/DL (8.5-10.1); CARBON DIOXIDE LEVEL 27 MEQ/L (21-32); CHLORIDE LEVEL 104 MEQ/L (98-107); CREATININE FOR GFR 0.62 MG/DL (0.55-1.30); GLOMERULAR FILTRATION RATE > 60.0 (>60); GLUCOSE, FASTING 80 MG/DL (70-100); POTASSIUM SERUM 4.3 MEQ/L (3.5-5.1); SODIUM LEVEL 138 MEQ/L (136-145); TOTAL PROTEIN 6.8 GM/DL (6.4-8.2)
[2020-03-21 09:29] LABS: TOTAL 25(OH) VITAMIN D 35.4 NG/ML (30.0-100.0)
== END ==
LOC: M WUC 15:06
PROVIDERS: ATTEND Physician Assistant Medical
DX: E55.9 Vitamin D deficiency, unspecified (principal); E87.6 Hypokalemia; E87.1 Hypo-osmolality and hyponatremia

== ENCOUNTER → 2020-04-21 | Outpatient (REF) | payer OTHER | LOC: M WUC 19:38 | PROVIDERS: ATTEND Physician Assistant | DX: J06.9 Acute upper respiratory infection, unspecified (principal) ==

== ENCOUNTER → 2020-04-25 | Outpatient (CLI) | payer OTHER ==
--- NOTE | 2020-04-25 19:25 | REP ---
INDICATION: FIBROIDS COMPARISON: None. TECHNIQUE: Transabdominal pelvic ultrasound followed by transvaginal examination for better evaluation of the endometrium and adnexa. FINDINGS: Bladder is unremarkable and measures 5.3 x 3.4 x 3.4 cm. Normal retroverted uterus measures 6.1 x 2.2 x 4.4 cm. The endometrial complex measures 1.2 mm thickness which excludes the trace amount of endocervical fluid noted. No discrete uterine or endometrial abnormalities are appreciated. No obvious myomatous changes appreciated. Bilateral ovaries are normal in appearance. Right ovary measures 2.4 x 1.6 x 2.3 cm; left ovary measures 2.5 x 2.3 x 2.5 cm. No pelvic fluid or adnexal mass lesion. IMPRESSION: Minimal amount of endocervical fluid is nonspecific and likely physiologic. Otherwise normal examination. Retroverted uterus without obvious myomatous changes. <Electronically signed by Jorge Luis Goodrich > 04/25/201920
== END ==
LOC: M RAD 11:12
PROVIDERS: ATTEND Nurse Practitioner Family
DX: D25.9 Leiomyoma of uterus, unspecified (principal)

== ENCOUNTER → 2020-05-17 | Outpatient (CLI) | payer OTHER ==
[2020-05-17 15:41] LABS: FOLATE 4.8 NG/ML; FREE T4 0.91 NG/DL (0.76-1.46); THYROID STIMULATING HORMONE 0.517 uIU/ML (0.358-3.740); TOTAL 25(OH) VITAMIN D 54.3 NG/ML (30.0-100.0)
== END ==
LOC: M WUC 13:15
DX: M24.9 Joint derangement, unspecified (principal); M25.50 Pain in unspecified joint; M79.10 Myalgia, unspecified site; R20.2 Paresthesia of skin; M41.9 Scoliosis, unspecified; H52.13 Myopia, bilateral; E66.9 Obesity, unspecified

== ENCOUNTER 2020-05-27 16:12 | Emergency (ER) | payer OTHER ==
[~2020-05-27] VITALS: Ht 152.4 cm; Wt 84.5 kg
[~2020-05-27 16:12] MED LIST changes: +ALL10TAB3 PO; +OMEP-218 PO; +SING10TA32 PO
[2020-05-27] MEDS ORDERED: KETOROLAC 30 MG/ML 1ML VIAL IV ONE (18:25)
[2020-05-27] MEDS ORDERED: NS 1,000 ML IV ONE (18:25)
[2020-05-27 19:10] LABS: MEAN CORPUSCULAR HEMOGLOBIN 32.3 pg (27.0-33.0); MEAN CORPUSCULAR HGB CONC 34.1 g/dl (32.0-36.5); MEAN CORPUSCULAR VOLUME 94.8 fl (80.0-96.0); PLATELET COUNT, AUTOMATED 304 10^3/uL (150-450); RED BLOOD COUNT 4.64 10^6/uL (4.00-5.40); WHITE BLOOD COUNT 14.4 10^3/uL (4.0-10.0)
[2020-05-27 19:24] VITALS: BP 168/104
[2020-05-27 19:34] LABS: ALBUMIN 3.9 GM/DL (3.2-5.2); ALT/SGPT 30 U/L (12-78); BILIRUBIN,DIRECT 0.1 MG/DL (0.0-0.2); BILIRUBIN,TOTAL 0.5 MG/DL (0.2-1.0); BLOOD UREA NITROGEN 7 MG/DL (7-18); CALCIUM LEVEL 8.9 MG/DL (8.5-10.1); CARBON DIOXIDE LEVEL 28 MEQ/L (21-32); CHLORIDE LEVEL 108 MEQ/L (98-107); CREATININE FOR GFR 0.56 MG/DL (0.55-1.30); GLOMERULAR FILTRATION RATE > 60.0 (>60); GLUCOSE, FASTING 66 MG/DL (70-100); LIPASE 63 U/L (73-393); POTASSIUM SERUM 3.6 MEQ/L (3.5-5.1); SODIUM LEVEL 142 MEQ/L (136-145)
[2020-05-27 20:01] LABS: ATYPICAL LYMPH 16 % (0-5); BASOPHILS 2 % (0-1); LYMPHOCYTES 12 % (16-44); MONOCYTES 6 % (0-5); NEUTROPHILS 62 % (28-66); PLATELET ESTIMATE NORMAL (NORMAL)
[2020-05-27 20:34] LABS: HCG, SERUM QUALITATIVE NEGATIVE (NEGATIVE)
== END 2020-05-27 19:45 | disposition left against medical advice (07) ==
LOC: M ED 16:12
DX: R10.9 Unspecified abdominal pain (principal); R11.2 Nausea with vomiting, unspecified; J45.909 Unspecified asthma, uncomplicated; F33.9 Major depressive disorder, recurrent, unspecified; F41.9 Anxiety disorder, unspecified; F90.9 Attention-deficit hyperactivity disorder, unspecified type; K21.9 Gastro-esophageal reflux disease without esophagitis; Z79.899 Other long term (current) drug therapy; Z79.3 Long term (current) use of hormonal contraceptives; Z88.1 Allergy status to other antibiotic agents; Z88.5 Allergy status to narcotic agent; Z88.8 Allergy status to other drugs, medicaments and biological substances; F17.210 Nicotine dependence, cigarettes, uncomplicated

== ENCOUNTER → 2020-06-11 | Outpatient (CLI) | payer OTHER ==
--- NOTE | 2020-06-11 14:52 | REP ---
INDICATION: RUQ ABD PAIN COMPARISON: None. TECHNIQUE: Real time buckner scale ultrasound examination using curved array transducer. FINDINGS: Liver is mildly hyperechoic suggesting fatty infiltration without focal hepatic lesion identified. Pancreas is incompletely evaluated due to interposed bowel gas but visualized portions of the body and head/uncinate process appear normal. The gallbladder is normal and without gallstones, wall thickening, or pericholecystic fluid. No biliary ductal dilatation is appreciated and the common bile duct measures 4.0 mm diameter. Right kidney is normal in reniform shape without hydronephrosis and measures 10.5 x 5.5 x 3.7 cm. No ascites in the visualized right upper quadrant. IMPRESSION: Mild hepatosteatosis suggested. Otherwise normal right upper quadrant/gallbladder ultrasound. <Electronically signed by Jorge Luis Goodrich > 06/11/20 [id number]
== END ==
LOC: M RAD 09:21
PROVIDERS: ATTEND Physician Assistant
DX: R10.9 Unspecified abdominal pain (principal)

== ENCOUNTER → 2020-10-29 | Outpatient (CLI) | payer OTHER ==
[~2020-10-29] MED LIST changes: +ACYC1TAB OR; -ACYC400T OR; +DOXY-443 OR; -DOXY100C37 OR; +ERGO500029 PO; +OMEP-173 PO; -OMEP-218 PO; -TERB250T12 PO; +TERB250T91 PO
== END ==
LOC: M WUC 15:17
PROVIDERS: ATTEND Physician Assistant
DX: S92.355A Nondisplaced fracture of fifth metatarsal bone, left foot, initial encounter for closed fracture (principal); X58.XXXA Exposure to other specified factors, initial encounter; Y92.89 Other specified places as the place of occurrence of the external cause; Y93.89 Activity, other specified; Y99.8 Other external cause status

== ENCOUNTER → 2021-02-14 | Outpatient (CLI) | payer OTHER ==
[~2021-02-14] MED LIST changes: -OMEP-173 PO; +OMEP-218 PO
== END ==
LOC: M LABSMTC 11:33
PROVIDERS: ATTEND Pediatrics
DX: Z20.822 Contact with and (suspected) exposure to COVID-19 (principal)

== ENCOUNTER → 2021-06-11 | Outpatient (CLI) | payer OTHER ==
[~2021-06-11] MED LIST changes: +OMEP-173 PO; -OMEP-218 PO
[2021-06-11 13:57] LABS: ALBUMIN 3.8 GM/DL (3.2-5.2); ALT/SGPT 39 U/L (12-78); BILIRUBIN,TOTAL 0.3 MG/DL (0.2-1.0); BLOOD UREA NITROGEN 10 MG/DL (7-18); CALCIUM LEVEL 9.3 MG/DL (8.5-10.1); CARBON DIOXIDE LEVEL 24 MEQ/L (21-32); CHLORIDE LEVEL 108 MEQ/L (98-107); CREATININE FOR GFR 0.71 MG/DL (0.55-1.30); GLOMERULAR FILTRATION RATE > 60.0 (>60); GLUCOSE, FASTING 102 MG/DL (70-100); POTASSIUM SERUM 4.4 MEQ/L (3.5-5.1); SODIUM LEVEL 139 MEQ/L (136-145); TOTAL PROTEIN 6.8 GM/DL (6.4-8.2)
[2021-06-11 14:06] LABS: TOTAL 25(OH) VITAMIN D 31.6 NG/ML (30.0-100.0)
[2021-06-11 14:22] LABS: HEMOGLOBIN 15.4 g/dl (12.0-15.5); MEAN CORPUSCULAR HEMOGLOBIN 32.6 pg (27.0-33.0); PLATELET COUNT, AUTOMATED 292 10^3/uL (150-450); RED BLOOD COUNT 4.73 10^6/uL (4.00-5.40)
[2021-06-11 14:29] LABS: HEMOGLOBIN A1c 5.5 %
== END ==
LOC: M WUC 09:48
PROVIDERS: ATTEND Internal Medicine Hematology
DX: J01.01 Acute recurrent maxillary sinusitis (principal); D72.829 Elevated white blood cell count, unspecified

== ENCOUNTER → 2021-07-09 | Outpatient (CLI) | payer OTHER | LOC: M CARPUL 11:14 | PROVIDERS: ATTEND Physician Assistant | DX: Q87.89 Other specified congenital malformation syndromes, not elsewhere classified (principal) ==

== ENCOUNTER → 2021-07-25 | Outpatient (CLI) | payer OTHER | LOC: M RAD 16:48 | PROVIDERS: ATTEND Internal Medicine Hematology | DX: J32.0 Chronic maxillary sinusitis (principal) ==

== ENCOUNTER 2021-10-21 11:11 | Emergency (ER) | payer OTHER ==
[~2021-10-21] VITALS: Ht 152.4 cm; Wt 88.7 kg
[2021-10-21] MEDS ORDERED: KETOROLAC 30 MG/ML 1ML VIAL IM ONE (12:30)
[2021-10-21] MEDS ORDERED: GABAPENTIN 300 MG CAP PO ONE (13:05)
[2021-10-21 13:21] LABS: BASO # 0.2 10^3/uL (0.0-0.2); BASO % 0.7 % (0.0-1.0); EOS # 0.2 10^3/uL (0.0-0.5); EOS % 0.7 % (0.0-3.0); HEMOGLOBIN 15.2 g/dl (12.0-15.5); LYMPH # 8.6 10^3/uL (1.5-5.0); LYMPH % 29.9 % (24.0-44.0); MEAN CORPUSCULAR HEMOGLOBIN 32.1 pg (27.0-33.0); MEAN CORPUSCULAR HGB CONC 34.5 g/dl (32.0-36.5); MEAN CORPUSCULAR VOLUME 92.8 fl (80.0-96.0); MONO % 5.3 % (2.0-8.0); NEUTROPHILS # 17.5 10^3/uL (1.5-8.5); NEUTROPHILS % 60.8 % (36.0-66.0); PLATELET COUNT, AUTOMATED 293 10^3/uL (150-450); RED BLOOD COUNT 4.74 10^6/uL (4.00-5.40); WHITE BLOOD COUNT 28.8 10^3/uL (4.0-10.0)
[2021-10-21 13:45] LABS: BLOOD UREA NITROGEN 9 MG/DL (7-18); CALCIUM LEVEL 8.7 MG/DL (8.5-10.1); CARBON DIOXIDE LEVEL 24 MEQ/L (21-32); CHLORIDE LEVEL 106 MEQ/L (98-107); CREATININE FOR GFR 0.82 MG/DL (0.55-1.30); GLOMERULAR FILTRATION RATE > 60.0 (>60); GLUCOSE, FASTING 122 MG/DL (70-100); MAGNESIUM LEVEL 1.9 MG/DL (1.8-2.4); POTASSIUM SERUM 3.6 MEQ/L (3.5-5.1); SODIUM LEVEL 138 MEQ/L (136-145)
[2021-10-21 14:19] LABS: C REACTIVE PROTEIN QUANTITATIV < 0.30 MG/DL (0.00-0.30)
[2021-10-21 14:27] LABS: MONO # 1.5 10^3/uL (0.0-0.8)
[2021-10-21] MEDS ORDERED: ISOVUE-370 76% 100ML VIAL As Ordered ONE (15:27)
[2021-10-21 15:35] LABS: ERYTHROCYTE SEDIMENTATION RATE 2 mm/hr (0-20)
[2021-10-21 17:44] VITALS: BP 132/87
== END 2021-10-21 17:45 | disposition home or self-care (01) ==
LOC: M ED 11:11
DX: M79.661 Pain in right lower leg (principal); M79.662 Pain in left lower leg; G89.29 Other chronic pain; M51.36 Other intervertebral disc degeneration, lumbar region; D72.829 Elevated white blood cell count, unspecified; M79.7 Fibromyalgia; G43.909 Migraine, unspecified, not intractable, without status migrainosus; Z88.1 Allergy status to other antibiotic agents; Z88.6 Allergy status to analgesic agent; Z88.8 Allergy status to other drugs, medicaments and biological substances; Z79.899 Other long term (current) drug therapy
CPT/HCPCS: 72132; 80048; 83735; 85025; 85652; 86140; 87040; 99284; J1885; Q9967

== ENCOUNTER → 2021-10-29 | Outpatient (CLI) | payer OTHER ==
[2021-10-29 15:13] LABS: BASO # 0.1 10^3/uL (0.0-0.2); BASO % 0.3 % (0.0-1.0); EOS # 0.2 10^3/uL (0.0-0.5); HEMATOCRIT 46.7 % (36.0-47.0); HEMOGLOBIN 15.6 g/dl (12.0-15.5); LYMPH # 5.2 10^3/uL (1.5-5.0); LYMPH % 27.6 % (24.0-44.0); MEAN CORPUSCULAR HEMOGLOBIN 31.9 pg (27.0-33.0); MEAN CORPUSCULAR HGB CONC 33.4 g/dl (32.0-36.5); MEAN CORPUSCULAR VOLUME 95.5 fl (80.0-96.0); MONO % 5.4 % (2.0-8.0); NEUTROPHILS # 12.1 10^3/uL (1.5-8.5); NEUTROPHILS % 64.6 % (36.0-66.0); PLATELET COUNT, AUTOMATED 297 10^3/uL (150-450); RED BLOOD COUNT 4.89 10^6/uL (4.00-5.40); WHITE BLOOD COUNT 18.8 10^3/uL (4.0-10.0)
[2021-10-29 15:58] LABS: ALBUMIN 3.7 GM/DL (3.2-5.2); ALT/SGPT 33 U/L (12-78); BILIRUBIN,TOTAL 0.4 MG/DL (0.2-1.0); BLOOD UREA NITROGEN 9 MG/DL (7-18); C REACTIVE PROTEIN QUANTITATIV 0.84 MG/DL (0.00-0.30); CALCIUM LEVEL 9.4 MG/DL (8.5-10.1); CARBON DIOXIDE LEVEL 27 MEQ/L (21-32); CHLORIDE LEVEL 104 MEQ/L (98-107); CREATININE FOR GFR 0.67 MG/DL (0.55-1.30); GLOMERULAR FILTRATION RATE > 60.0 (>60); GLUCOSE, FASTING 82 MG/DL (70-100); POTASSIUM SERUM 4.1 MEQ/L (3.5-5.1); SODIUM LEVEL 136 MEQ/L (136-145); TOTAL PROTEIN 7.6 GM/DL (6.4-8.2)
== END ==
LOC: M PLALAB 12:34
PROVIDERS: ATTEND Internal Medicine Hematology
DX: D72.829 Elevated white blood cell count, unspecified (principal)

== ENCOUNTER → 2022-04-15 | Outpatient (CLI) | payer OTHER | LOC: M WUC 13:10 | PROVIDERS: ATTEND Physician Assistant | DX: S83.401A Sprain of unspecified collateral ligament of right knee, initial encounter (principal); M54.50 Low back pain, unspecified; W18.30XA Fall on same level, unspecified, initial encounter; Y92.009 Unspecified place in unspecified non-institutional (private) residence as the place of occurrence of the external cause ==

== ENCOUNTER → 2022-04-20 | Outpatient (CLI) | payer OTHER | LOC: M WUC 13:02 | PROVIDERS: ATTEND Physician Assistant | DX: M79.671 Pain in right foot (principal); M79.672 Pain in left foot ==

== ENCOUNTER → 2022-06-17 | Outpatient (CLI) | payer OTHER ==
[~2022-06-17] MED LIST changes: +MONT-5 PO; -SING10TA32 PO
[2022-06-17 17:56] LABS: BASO # 0.1 10^3/uL (0.0-0.2); BASO % 0.4 % (0.0-1.0); EOS # 0.2 10^3/uL (0.0-0.5); EOS % 1.1 % (0.0-3.0); HEMATOCRIT 45.5 % (36.0-47.0); HEMOGLOBIN 15.8 g/dl (12.0-15.5); LYMPH # 6.4 10^3/uL (1.5-5.0); LYMPH % 39.6 % (24.0-44.0); MEAN CORPUSCULAR HEMOGLOBIN 33.3 pg (27.0-33.0); MEAN CORPUSCULAR HGB CONC 34.7 g/dl (32.0-36.5); MONO # 0.9 10^3/uL (0.0-0.8); MONO % 5.5 % (2.0-8.0); NEUTROPHILS # 8.5 10^3/uL (1.5-8.5); NEUTROPHILS % 52.8 % (36.0-66.0); PLATELET COUNT, AUTOMATED 351 10^3/uL (150-450); RED BLOOD COUNT 4.74 10^6/uL (4.00-5.40); WHITE BLOOD COUNT 16.1 10^3/uL (4.0-10.0)
[2022-06-17 18:24] LABS: FREE T4 1.04 NG/DL (0.89-1.76); THYROID STIMULATING HORMONE 0.602 uIU/ML (0.55-4.78)
== END ==
LOC: M PLALAB 15:32
PROVIDERS: ATTEND Internal Medicine Hematology
DX: M79.7 Fibromyalgia (principal)

== ENCOUNTER → 2022-07-03 | Outpatient (CLI) | payer OTHER ==
[~2022-07-03] MED LIST changes: +ISOVUE-370 76% 100ML VIAL As Ordered ONE
== END ==
LOC: M RAD 10:06
PROVIDERS: ATTEND Internal Medicine Hematology
DX: Z82.49 Family history of ischemic heart disease and other diseases of the circulatory system (principal)
CPT/HCPCS: 70496; Q9967

== ENCOUNTER → 2022-09-22 | Outpatient (CLI) | payer OTHER ==
[~2022-09-22] MED LIST changes: -ISOVUE-370 76% 100ML VIAL As Ordered ONE; -K-TA10TA2 PO; +POTA-165 PO
[2022-09-22 17:58] LABS: RHEUMATOID FACTOR QUANT < 3.5 IU/ML (<14)
[2022-09-24 21:08] LABS: ANTINUCLEAR ANTIBODIES DIRECT Negative (Negative); CYCLIC CITRULLINATED PEPTIDE 3 units (0-19)
== END ==
LOC: M WUC 12:56
PROVIDERS: ATTEND Internal Medicine Hematology
DX: M79.7 Fibromyalgia (principal)

== ENCOUNTER → 2022-10-07 | Outpatient (CLI) | payer OTHER ==
[2022-10-07 13:30] LABS: HEMATOCRIT 44.3 % (36.0-47.0); HEMOGLOBIN 15.3 g/dl (12.0-15.5); MEAN CORPUSCULAR HEMOGLOBIN 33.1 pg (27.0-33.0); MEAN CORPUSCULAR HGB CONC 34.5 g/dl (32.0-36.5); MEAN CORPUSCULAR VOLUME 95.9 fl (80.0-96.0); PLATELET COUNT, AUTOMATED 323 10^3/uL (150-450); RED BLOOD COUNT 4.62 10^6/uL (4.00-5.40); WHITE BLOOD COUNT 16.5 10^3/uL (4.0-10.0)
[2022-10-07 14:01] LABS: ALBUMIN 3.6 G/DL (3.2-5.2); ALKALINE PHOSPHATASE 80 U/L (46-116); ALT/SGPT 20 U/L (7.0-40); AST/SGOT 10 U/L (<34); BILIRUBIN,TOTAL 0.4 MG/DL (0.3-1.2); BLOOD UREA NITROGEN 11 MG/DL (9-23); CALCIUM LEVEL 10.2 MG/DL (8.5-10.1); CARBON DIOXIDE LEVEL 25 MMOL/L (20-31); CHLORIDE LEVEL 101 MMOL/L (98-107); CREATININE FOR GFR 0.61 MG/DL (0.55-1.30); GLOMERULAR FILTRATION RATE > 60.0 (>60); GLUCOSE, FASTING 73 MG/DL (60-100); POTASSIUM SERUM 4.4 MMOL/L (3.5-5.1); SODIUM LEVEL 136 MMOL/L (136-145); TOTAL PROTEIN 6.3 G/DL (5.7-8.2)
[2022-10-07 14:07] LABS: BASO # 0.1 10^3/uL (0.0-0.2); BASO % 0.5 % (0.0-1.0); EOS # 0.2 10^3/uL (0.0-0.5); LYMPH # 5.7 10^3/uL (1.5-5.0); LYMPH % 34.3 % (24.0-44.0); MONO # 1.1 10^3/uL (0.0-0.8); MONO % 6.6 % (2.0-8.0); NEUTROPHILS # 9.2 10^3/uL (1.5-8.5); NEUTROPHILS % 55.7 % (36.0-66.0)
== END ==
LOC: M PLALAB 10:37
PROVIDERS: ATTEND Internal Medicine Hematology
DX: N30.00 Acute cystitis without hematuria (principal)

== ENCOUNTER → 2022-11-06 | Outpatient (REF) | payer OTHER | LOC: M LABWUC 16:19 | PROVIDERS: ATTEND Registered Nurse | DX: F31.81 Bipolar II disorder (principal) ==

== ENCOUNTER → 2023-02-09 | Outpatient (CLI) | payer OTHER | LOC: M WUC 12:34 | PROVIDERS: ATTEND Physician Assistant | DX: S60.212A Contusion of left wrist, initial encounter (principal); S60.222A Contusion of left hand, initial encounter; S90.32XA Contusion of left foot, initial encounter; W18.30XA Fall on same level, unspecified, initial encounter; Y92.009 Unspecified place in unspecified non-institutional (private) residence as the place of occurrence of the external cause ==

== ENCOUNTER → 2023-03-16 | Outpatient (CLI) | payer OTHER ==
[2023-03-16 17:50] LABS: BASO # 0.1 10^3/uL (0.0-0.2); BASO % 0.4 % (0.0-1.0); EOS # 0.1 10^3/uL (0.0-0.5); EOS % 0.5 % (0.0-3.0); HEMATOCRIT 47.2 % (36.0-47.0); HEMOGLOBIN 16.5 g/dl (12.0-15.5); LYMPH % 25.2 % (24.0-44.0); MEAN CORPUSCULAR HEMOGLOBIN 32.8 pg (27.0-33.0); MEAN CORPUSCULAR VOLUME 93.8 fl (80.0-96.0); MONO # 1.3 10^3/uL (0.0-0.8); MONO % 5.6 % (2.0-8.0); NEUTROPHILS # 15.7 10^3/uL (1.5-8.5); NEUTROPHILS % 66.5 % (36.0-66.0); PLATELET COUNT, AUTOMATED 408 10^3/uL (150-450); RED BLOOD COUNT 5.03 10^6/uL (4.00-5.40); WHITE BLOOD COUNT 23.6 10^3/uL (4.0-10.0)
[2023-03-16 17:51] LABS: C REACTIVE PROTEIN QUANTITATIV < 0.40 MG/DL (<1.0)
[2023-03-16 17:53] LABS: ALBUMIN 4.1 G/DL (3.2-5.2); ALKALINE PHOSPHATASE 87 U/L (46-116); ALT/SGPT 21 U/L (7.0-40); AST/SGOT < 8 U/L (<34); BILIRUBIN,TOTAL 0.5 MG/DL (0.3-1.2); BLOOD UREA NITROGEN 13 MG/DL (9-23); CALCIUM LEVEL 10.3 MG/DL (8.5-10.1); CARBON DIOXIDE LEVEL 26 MMOL/L (20-31); CHLORIDE LEVEL 103 MMOL/L (98-107); GLOMERULAR FILTRATION RATE > 60.0 (>60); GLUCOSE, FASTING 79 MG/DL (60-100); POTASSIUM SERUM 4.4 MMOL/L (3.5-5.1); SODIUM LEVEL 136 MMOL/L (136-145); TOTAL PROTEIN 7.4 G/DL (5.7-8.2)
[2023-03-16 17:57] LABS: RHEUMATOID FACTOR QUANT < 3.5 IU/ML (<14); URIC ACID 6.6 MG/DL (3.1-7.8)
== END ==
LOC: M PLALAB 15:01
PROVIDERS: ATTEND Internal Medicine Hematology
DX: M79.7 Fibromyalgia (principal)

== ENCOUNTER → 2023-03-16 | Outpatient (CLI) | payer OTHER | LOC: M PLALAB 15:04 | PROVIDERS: ATTEND Registered Nurse | DX: F31.81 Bipolar II disorder (principal) ==

== ENCOUNTER 2023-05-03 13:15 | Day surgery (SDC) | payer OTHER ==
[~2023-05-03] VITALS: Ht 152.4 cm; Wt 89.4 kg
[~2023-05-03 13:15] MED LIST changes: +ADV250INH INH; +POTA-149 PO; +VENTAER INH
[2023-05-03] MEDS: NS 1,000 ML IV ONE (13:37)
[2023-05-03] MEDS ORDERED: propofoL 200 MG/20 ML VIAL As Ordered ONE (13:47)
[2023-05-03] MEDS ORDERED: LIDOCAINE 2% 100MG/5ML SDV (FOR ANES.) As Ordered ONE (13:48)
[2023-05-03] MEDS ORDERED: fentaNYL 100 MCG/2 ML INJECTION As Ordered ONE (14:07)
[2023-05-03 15:03] VITALS: BP 141/88; TEMP 96.4; O2SAT 98
== END 2023-05-03 15:06 | disposition home or self-care (01) ==
LOC: M OPP 13:15
PROVIDERS: ATTEND Internal Medicine Gastroenterology
DX: K31.89 Other diseases of stomach and duodenum (principal); R11.0 Nausea; F17.200 Nicotine dependence, unspecified, uncomplicated; G47.30 Sleep apnea, unspecified; Z79.51 Long term (current) use of inhaled steroids; Z79.891 Long term (current) use of opiate analgesic; Z79.899 Other long term (current) drug therapy; Z88.1 Allergy status to other antibiotic agents; Z88.5 Allergy status to narcotic agent; Z88.6 Allergy status to analgesic agent; Z88.8 Allergy status to other drugs, medicaments and biological substances
CPT/HCPCS: 43239; 88305; J3010

== ENCOUNTER → 2023-07-14 | Outpatient (CLI) | payer OTHER ==
[2023-07-14 15:16] LABS: PLATELET COUNT, AUTOMATED 317 10^3/uL (150-450)
[2023-07-14 15:31] LABS: INR 0.93; PARTIAL THROMBOPLASTIN TIME 24.7 SECONDS (24.8-34.2); PROTHROMBIN TIME 12.2 SECONDS (12.5-14.5)
[2023-07-14 15:38] LABS: COLLAGEN EPINEPHRINE 135 SECONDS (74-162)
== END ==
LOC: M PLALAB 14:07
PROVIDERS: ATTEND Physician Assistant
DX: Z01.818 Encounter for other preprocedural examination (principal)

== ENCOUNTER → 2023-07-14 | Outpatient (CLI) | payer OTHER ==
[2023-07-14 15:23] LABS: HEMATOCRIT 44.1 % (36.0-47.0); HEMOGLOBIN 15.3 g/dl (12.0-15.5); MEAN CORPUSCULAR HEMOGLOBIN 33.8 pg (27.0-33.0); MEAN CORPUSCULAR HGB CONC 34.7 g/dl (32.0-36.5); MEAN CORPUSCULAR VOLUME 97.4 fl (80.0-96.0); PLATELET COUNT, AUTOMATED 335 10^3/uL (150-450); RED BLOOD COUNT 4.53 10^6/uL (4.00-5.40); WHITE BLOOD COUNT 14.1 10^3/uL (4.0-10.0)
[2023-07-14 15:47] LABS: C REACTIVE PROTEIN QUANTITATIV < 0.40 MG/DL (<1.0)
[2023-07-14 15:48] LABS: CALCIUM LEVEL 9.2 MG/DL (8.5-10.1); IRON (FE) 102 UG/DL (50-170); MAGNESIUM LEVEL 1.8 MG/DL (1.8-2.4); PHOSPHORUS LEVEL 3.9 MG/DL (2.5-4.9)
[2023-07-14 15:49] LABS: CPK CREATINE PHOSPHOKINASE 28 U/L (34-145); TOTAL IRON BINDING CAPACITY 340 UG/DL (250-425)
[2023-07-14 15:50] LABS: PTH INTACT 42.2 PG/ML (18.5-88.0)
[2023-07-14 15:51] LABS: TOTAL 25(OH) VITAMIN D 42.8 NG/ML (20.0-100.0)
[2023-07-14 16:16] LABS: ERYTHROCYTE SEDIMENTATION RATE 8 mm/hr (0-20)
[2023-07-14 16:17] LABS: ATYPICAL LYMPH 15 % (0-5); LYMPHOCYTES 27 % (16-44); MONOCYTES 3 % (0-5); NEUTROPHILS 54 % (28-66); PLATELET ESTIMATE NORMAL (NORMAL)
== END ==
LOC: M PLALAB 14:09
PROVIDERS: ATTEND Internal Medicine
DX: E83.52 Hypercalcemia (principal)

== ENCOUNTER → 2023-07-26 | Outpatient (CLI) | payer OTHER | LOC: M WUC 15:06 | PROVIDERS: ATTEND Internal Medicine | DX: M79.671 Pain in right foot (principal); M79.672 Pain in left foot ==

== ENCOUNTER → 2023-08-03 | Outpatient (CLI) | payer OTHER ==
[~2023-08-03] MED LIST changes: +DOXY-323 OR; -DOXY-443 OR
== END ==
LOC: M WUC 09:10
PROVIDERS: ATTEND Internal Medicine
DX: M70.61 Trochanteric bursitis, right hip (principal)

== ENCOUNTER 2023-08-19 13:09 | Day surgery (SDC) | payer OTHER ==
[~2023-08-19] VITALS: Ht 152.4 cm; Wt 85.3 kg
[~2023-08-19 13:09] MED LIST changes: +AZEL1SPR3 NARES; +DEPA1TAB PO; +FLON1SPR
[2023-08-19 13:38] LABS: HEMATOCRIT 43.8 % (36.0-47.0); HEMOGLOBIN 15.6 g/dl (12.0-15.5); MEAN CORPUSCULAR HEMOGLOBIN 33.6 pg (27.0-33.0); MEAN CORPUSCULAR HGB CONC 35.6 g/dl (32.0-36.5); MEAN CORPUSCULAR VOLUME 94.4 fl (80.0-96.0); PLATELET COUNT, AUTOMATED 322 10^3/uL (150-450); RED BLOOD COUNT 4.64 10^6/uL (4.00-5.40); WHITE BLOOD COUNT 21.7 10^3/uL (4.0-10.0)
[2023-08-19] MEDS ORDERED: ROCURONIUM BROMIDE 50MG/5ML VIAL As Ordered ONE (13:50)
[2023-08-19] MEDS ORDERED: propofoL 200 MG/20 ML VIAL As Ordered ONE (13:50)
[2023-08-19] MEDS ORDERED: LIDOCAINE 2% 100MG/5ML SDV (FOR ANES.) As Ordered ONE (13:50)
[2023-08-19] MEDS ORDERED: ACETAMINOPHEN 1000MG 100ML IV BAG As Ordered ONE (13:50)
[2023-08-19] MEDS ORDERED: KETOROLAC 60MG 2ML VIAL As Ordered ONE (13:50)
[2023-08-19] MEDS ORDERED: ONDANSETRON 4MG 2ML VIAL As Ordered ONE (13:50)
[2023-08-19] MEDS ORDERED: fentaNYL 100 MCG/2 ML INJECTION As Ordered ONE (13:51)
[2023-08-19] MEDS ORDERED: MIDAZOLAM INJ 2MG/2ML VIAL As Ordered ONE (13:51)
[2023-08-19] MEDS: LR 1,000 ML IV SCH (14:03)
[2023-08-19 14:10] LABS: HCG, SERUM QUALITATIVE NEGATIVE (NEGATIVE)
[2023-08-19] MEDS: ALBUTEROL SULFATE 2.5MG/0.5ML INH NEB SOLN INH PRN (14:37)
[2023-08-19] MEDS ORDERED: SUGAMMADEX SODIUM 500 MG/5 ML VIAL (BRIDION) As Ordered ONE (15:45)
[2023-08-19] MEDS ORDERED: MEPERIDINE 25 MG/ML 1ML VIAL IV PRN (15:55)
[2023-08-19] MEDS ORDERED: fentaNYL 100 MCG/2 ML INJECTION IV PRN (15:55)
[2023-08-19] MEDS ORDERED: LR 1,000 ML IV SCH ×2 (15:55→16:25)
[2023-08-19] MEDS ORDERED: METOCLOPRAMIDE INJ 10MG/2ML VIAL IV PRN (15:55)
[2023-08-19] MEDS ORDERED: diphenhydrAMINE 50MG/ML VIAL IV PRN (15:55)
[2023-08-19] MEDS ORDERED: ALBUTEROL SULFATE 2.5MG/0.5ML INH NEB SOLN INH PRN (15:55)
[2023-08-19] MEDS ORDERED: PERC5TAB12 PO (16:00)
[2023-08-19] MEDS: HYDROMORPHONE HCL 0.5 MG/ 0.5 ML SYRINGE IV PRN (16:37)
[2023-08-19] MEDS: ONDANSETRON 4MG 2ML VIAL IV PRN (16:37)
[2023-08-19 17:20] VITALS: BP 126/66; TEMP 96.8; O2SAT 95
== END 2023-08-19 17:48 | disposition home or self-care (01) ==
LOC: M SDC 13:09
PROVIDERS: ATTEND Obstetrics & Gynecology
DX: Z30.2 Encounter for sterilization (principal); G60.0 Hereditary motor and sensory neuropathy; K21.9 Gastro-esophageal reflux disease without esophagitis; G47.30 Sleep apnea, unspecified; Z79.899 Other long term (current) drug therapy; F17.210 Nicotine dependence, cigarettes, uncomplicated; Z88.5 Allergy status to narcotic agent; Z88.1 Allergy status to other antibiotic agents; Z88.6 Allergy status to analgesic agent; Z90.49 Acquired absence of other specified parts of digestive tract
CPT/HCPCS: 36415; 58661; 84703; 85027; 86850; 86900; 86901; 88302; J0131; J0665; J1100; J1170; J1885; J2250; J2405; J3010

== ENCOUNTER 2023-09-21 14:15 | Outpatient (RCR) | payer OTHER ==
[~2023-09-21 14:15] MED LIST changes: +PERC5TAB12 PO
== END 2023-09-26 ==
LOC: M PT 14:15
PROVIDERS: ATTEND Internal Medicine
DX: M70.61 Trochanteric bursitis, right hip (principal)

== ENCOUNTER → 2023-10-01 | Outpatient (CLI) | payer OTHER ==
[2023-10-01 17:10] LABS: BASO # 0.1 10^3/uL (0.0-0.2); BASO % 0.4 % (0.0-1.0); EOS # 0.1 10^3/uL (0.0-0.5); EOS % 0.8 % (0.0-3.0); HEMATOCRIT 46.7 % (36.0-47.0); HEMOGLOBIN 16.2 g/dl (12.0-15.5); LYMPH # 5.8 10^3/uL (1.5-5.0); LYMPH % 31.6 % (24.0-44.0); MEAN CORPUSCULAR HEMOGLOBIN 33.2 pg (27.0-33.0); MEAN CORPUSCULAR HGB CONC 34.7 g/dl (32.0-36.5); MEAN CORPUSCULAR VOLUME 95.7 fl (80.0-96.0); MONO # 0.9 10^3/uL (0.0-0.8); MONO % 5.1 % (2.0-8.0); NEUTROPHILS # 11.2 10^3/uL (1.5-8.5); NEUTROPHILS % 61.2 % (36.0-66.0); PLATELET COUNT, AUTOMATED 364 10^3/uL (150-450); RED BLOOD COUNT 4.88 10^6/uL (4.00-5.40); WHITE BLOOD COUNT 18.3 10^3/uL (4.0-10.0)
[2023-10-01 21:08] LABS: ALBUMIN 3.9 G/DL (3.2-5.2); ALKALINE PHOSPHATASE 77 U/L (46-116); ALT/SGPT 26 U/L (7.0-40); AST/SGOT 9 U/L (<34); BILIRUBIN,TOTAL 0.6 MG/DL (0.3-1.2); BLOOD UREA NITROGEN 9 MG/DL (9-23); CALCIUM LEVEL 9.7 MG/DL (8.5-10.1); CARBON DIOXIDE LEVEL 26 MMOL/L (20-31); CHLORIDE LEVEL 105 MMOL/L (98-107); CREATININE FOR GFR 0.68 MG/DL (0.55-1.30); GLOMERULAR FILTRATION RATE > 60.0 (>60); GLUCOSE, FASTING 77 MG/DL (60-100); POTASSIUM SERUM 4.4 MMOL/L (3.5-5.1); SODIUM LEVEL 138 MMOL/L (136-145); TOTAL PROTEIN 6.7 G/DL (5.7-8.2)
== END ==
LOC: M WUC 14:41
PROVIDERS: ATTEND Physician Assistant
DX: R18.8 Other ascites (principal)

== ENCOUNTER → 2023-10-05 | Outpatient (CLI) | payer OTHER ==
[2023-10-05 08:35] LABS: APPEARANCE, URINE HAZY (CLEAR); BACTERIA, URINE AUTO NEGATIVE (NEGATIVE); BILIRUBIN, URINE AUTO NEGATIVE (NEGATIVE); BLOOD, URINE BLOOD NEGATIVE (NEGATIVE); COLOR, URINE YELLOW (YELLOW); GLUCOSE, URINE (UA) AUTO NEGATIVE (NEGATIVE); KETONE, URINE AUTO NEGATIVE (NEGATIVE); LEUKOCYTE ESTERASE, URINE AUTO NEGATIVE (NEGATIVE); MUCUS, URINE SMALL (NEGATIVE); NITRITE, URINE AUTO NEGATIVE (NEGATIVE); PROTEIN, URINE AUTO NEGATIVE (NEGATIVE); RBC, URINE AUTO 0 /HPF (0-3); SPECIFIC GRAVITY URINE AUTO 1.019 (1.002-1.035); SQUAMOUS EPITHELIAL CELL UR AU 4 /HPF (0-6); UROBILINOGEN, URINE AUTO 0.2 mg/dL (0.0-2.0); WBC, URINE AUTO 1 /HPF (0-3)
[2023-10-05 08:52] LABS: LIPASE 27 U/L (12-53)
[2023-10-05 08:54] LABS: ALBUMIN 3.8 G/DL (3.2-5.2); ALKALINE PHOSPHATASE 78 U/L (46-116); ALT/SGPT 23 U/L (7.0-40); AST/SGOT 10 U/L (<34); BILIRUBIN,TOTAL 0.6 MG/DL (0.3-1.2); BLOOD UREA NITROGEN 9 MG/DL (9-23); CALCIUM LEVEL 9.5 MG/DL (8.5-10.1); CARBON DIOXIDE LEVEL 29 MMOL/L (20-31); CHLORIDE LEVEL 104 MMOL/L (98-107); CREATININE FOR GFR 0.61 MG/DL (0.55-1.30); GLOMERULAR FILTRATION RATE > 60.0 (>60); GLUCOSE, FASTING 93 MG/DL (60-100); POTASSIUM SERUM 4.6 MMOL/L (3.5-5.1); SODIUM LEVEL 137 MMOL/L (136-145); TOTAL PROTEIN 6.7 G/DL (5.7-8.2)
[2023-10-05 09:31] LABS: BASO # 0.1 10^3/uL (0.0-0.2); BASO % 0.3 % (0.0-1.0); EOS # 0.2 10^3/uL (0.0-0.5); HEMATOCRIT 46.1 % (36.0-47.0); HEMOGLOBIN 16.2 g/dl (12.0-15.5); LYMPH # 4.9 10^3/uL (1.5-5.0); LYMPH % 26.9 % (24.0-44.0); MEAN CORPUSCULAR HEMOGLOBIN 33.5 pg (27.0-33.0); MEAN CORPUSCULAR HGB CONC 35.1 g/dl (32.0-36.5); MEAN CORPUSCULAR VOLUME 95.2 fl (80.0-96.0); MONO # 1.2 10^3/uL (0.0-0.8); MONO % 6.6 % (2.0-8.0); NEUTROPHILS # 11.7 10^3/uL (1.5-8.5); NEUTROPHILS % 64.4 % (36.0-66.0); PLATELET COUNT, AUTOMATED 366 10^3/uL (150-450); RED BLOOD COUNT 4.84 10^6/uL (4.00-5.40); WHITE BLOOD COUNT 18.1 10^3/uL (4.0-10.0)
[2023-10-05 09:42] LABS: ERYTHROCYTE SEDIMENTATION RATE 7 mm/hr (0-20)
== END ==
LOC: M RAD 07:21
PROVIDERS: ATTEND Physician Assistant Medical
DX: R10.11 Right upper quadrant pain (principal)

== ENCOUNTER → 2023-10-15 | Outpatient (CLI) | payer OTHER | LOC: M RAD 15:18 | PROVIDERS: ATTEND Physician Assistant | DX: M51.16 Intervertebral disc disorders with radiculopathy, lumbar region (principal); M51.36 Other intervertebral disc degeneration, lumbar region ==

== ENCOUNTER 2023-10-19 12:00 | Outpatient (RCR) | payer OTHER | END 2023-10-27 | LOC: M PT 12:00 | PROVIDERS: ATTEND Internal Medicine | DX: M70.61 Trochanteric bursitis, right hip (principal) ==

== ENCOUNTER → 2023-10-29 | Outpatient (CLI) | payer OTHER ==
[~2023-10-29] MED LIST changes: +GASTROGRAFIN SOLUTION 30ML As Ordered ONE; +ISOVUE-370 76% 100ML VIAL As Ordered ONE
== END ==
LOC: M RAD 07:48
PROVIDERS: ATTEND Internal Medicine Hematology
DX: R10.9 Unspecified abdominal pain (principal)
CPT/HCPCS: 74177; Q9963; Q9967

== ENCOUNTER 2023-11-02 12:00 | Outpatient (RCR) | payer OTHER ==
[~2023-11-02 12:00] MED LIST changes: -GASTROGRAFIN SOLUTION 30ML As Ordered ONE; -ISOVUE-370 76% 100ML VIAL As Ordered ONE
== END 2023-11-27 ==
LOC: M PT 12:00
PROVIDERS: ATTEND Internal Medicine
DX: M70.61 Trochanteric bursitis, right hip (principal)

== ENCOUNTER → 2023-11-15 | Outpatient (CLI) | payer OTHER ==
[2023-11-15 13:26] LABS: PLATELET COUNT, AUTOMATED 336 10^3/uL (150-450)
[2023-11-15 13:43] LABS: INR 0.91; PARTIAL THROMBOPLASTIN TIME 25.7 SECONDS (24.8-34.2)
[2023-11-15 13:53] LABS: COLLAGEN EPINEPHRINE 135 SECONDS (74-162)
== END ==
LOC: M PLALAB 12:33
PROVIDERS: ATTEND Physical Medicine & Rehabilitation
DX: Z01.812 Encounter for preprocedural laboratory examination (principal)

== ENCOUNTER → 2023-12-13 | Outpatient (CLI) | payer OTHER | LOC: M WHC 09:38 | PROVIDERS: ATTEND Obstetrics & Gynecology | DX: N83.202 Unspecified ovarian cyst, left side (principal) ==

== ENCOUNTER → 2024-03-14 | Outpatient (REF) | payer MEDICARE, OTHER ==
[~2024-03-14] MED LIST changes: -ADV250INH INH; +ADVA1AER9 INH; -DOXY-323 OR; +DOXY-441 OR
== END ==
LOC: M SFHCDERM 17:44
PROVIDERS: ATTEND Nurse Practitioner Family
DX: D22.4 Melanocytic nevi of scalp and neck (principal)

== ENCOUNTER → 2024-03-16 | Outpatient (CLI) | payer MEDICARE, OTHER | LOC: M PLAIMG 14:22 | PROVIDERS: ATTEND Internal Medicine | DX: M71.551 Other bursitis, not elsewhere classified, right hip (principal) ==

== ENCOUNTER → 2024-03-28 | Outpatient (CLI) | payer MEDICARE, OTHER ==
[~2024-03-28] MED LIST changes: +ISOVUE-300 61% 100ML VIAL As Ordered ONE; +LIDOCAINE 1% MDV 20ML VIAL As Ordered ONE; +PROHANCE 279.3MG/ML 5ML VIAL As Ordered ONE
== END ==
LOC: M RAD 12:55
PROVIDERS: ATTEND Physician Assistant
DX: M25.512 Pain in left shoulder (principal); M75.32 Calcific tendinitis of left shoulder; S43.402A Unspecified sprain of left shoulder joint, initial encounter; X58.XXXA Exposure to other specified factors, initial encounter; Y92.9 Unspecified place or not applicable
CPT/HCPCS: 23350; 73223; 77002; A9576; Q9967

== ENCOUNTER → 2024-04-11 | Outpatient (REF) | payer MEDICARE, OTHER ==
[~2024-04-11] MED LIST changes: -ISOVUE-300 61% 100ML VIAL As Ordered ONE; -LIDOCAINE 1% MDV 20ML VIAL As Ordered ONE; -PROHANCE 279.3MG/ML 5ML VIAL As Ordered ONE
== END ==
LOC: M SFHCPLAZ 17:06
PROVIDERS: ATTEND Family Medicine
DX: J06.9 Acute upper respiratory infection, unspecified (principal)

== ENCOUNTER → 2024-04-25 | Outpatient (CLI) | payer MEDICARE, OTHER | LOC: M WHC 11:18 | PROVIDERS: ATTEND Family Medicine | DX: M81.0 Age-related osteoporosis without current pathological fracture (principal) ==

== ENCOUNTER → 2024-05-18 | Outpatient (CLI) | payer MEDICARE, OTHER | LOC: M RAD 11:50 | PROVIDERS: ATTEND Obstetrics & Gynecology | DX: N93.9 Abnormal uterine and vaginal bleeding, unspecified (principal) ==

== ENCOUNTER → 2024-08-01 | Outpatient (REF) | payer MEDICARE, OTHER ==
[2024-08-01 14:52] LABS: HEMATOCRIT 48.3 % (36.0-47.0); HEMOGLOBIN 16.8 g/dl (12.0-15.5); MEAN CORPUSCULAR HGB CONC 34.8 g/dl (32.0-36.5); MEAN CORPUSCULAR VOLUME 97.8 fl (80.0-96.0); PLATELET COUNT, AUTOMATED 375 10^3/uL (150-450); RED BLOOD COUNT 4.94 10^6/uL (4.00-5.40); WHITE BLOOD COUNT 17.1 10^3/uL (4.0-10.0)
[2024-08-01 15:16] LABS: HEMOGLOBIN A1c 5.2 % (4.0-6.0)
[2024-08-01 15:24] LABS: ALKALINE PHOSPHATASE 98 U/L (35-104); ALT/SGPT 34 U/L (7.0-40); AST/SGOT 21 U/L (<34); BILIRUBIN,TOTAL 0.5 MG/DL (0.3-1.2); BLOOD UREA NITROGEN 7 MG/DL (9-23); CALCIUM LEVEL 9.9 MG/DL (8.5-10.1); CARBON DIOXIDE LEVEL 25 MMOL/L (20-31); CHLORIDE LEVEL 104 MMOL/L (98-107); CHOLESTEROL LEVEL 239 MG/DL (<200); CHOLESTEROL RISK RATIO 6.14 (<5); CREATININE FOR GFR 0.65 MG/DL (0.55-1.30); GLOMERULAR FILTRATION RATE > 90.0 (>58); GLUCOSE, FASTING 87 MG/DL (60-100); HDL CHOLESTEROL 38.9 MG/DL (>40); LDL CHOLESTEROL 149.1 MG/DL (<100); MAGNESIUM LEVEL 1.8 MG/DL (1.8-2.4); NON-HDL-C 200.1 MG/DL; POTASSIUM SERUM 4.5 MMOL/L (3.5-5.1); SODIUM LEVEL 139 MMOL/L (136-145); TOTAL PROTEIN 7.1 G/DL (5.7-8.2); TRIGLYCERIDES LEVEL 255 MG/DL (<150)
[2024-08-01 15:27] LABS: TOTAL 25(OH) VITAMIN D 53.7 NG/ML (20.0-100.0); VITAMIN B12 LEVEL 672 PG/ML (211-911)
[2024-08-01 15:37] LABS: ATYPICAL LYMPH 13 % (0-5); BASOPHILS 1 % (0-1); EOSINOPHILS 1 % (0-3); LYMPHOCYTES 19 % (16-44); MONOCYTES 5 % (0-5); NEUTROPHILS 61 % (28-66)
[2024-08-01 15:38] LABS: PLATELET ESTIMATE INCREASED (NORMAL)
== END ==
LOC: M LABWUC 14:02
PROVIDERS: ATTEND Family Medicine
DX: M79.10 Myalgia, unspecified site (principal); E53.8 Deficiency of other specified B group vitamins; R10.11 Right upper quadrant pain; E78.00 Pure hypercholesterolemia, unspecified

== ENCOUNTER → 2024-10-02 | Outpatient (CLI) | payer MEDICARE ==
[~2024-10-02] MED LIST changes: +ACYC-438 OR; -ACYC1TAB OR; +LIDO1ADH93 TOP; -LIDO5DIS41 TOP
== END ==
LOC: M WHC 14:12
PROVIDERS: ATTEND Obstetrics & Gynecology
DX: Z12.31 Encounter for screening mammogram for malignant neoplasm of breast (principal)

== ENCOUNTER → 2024-10-19 | Outpatient (CLI) | payer MEDICARE | LOC: M WUC 13:26 | PROVIDERS: ATTEND Student in an Organized Health Care Education/Training Program | DX: M25.571 Pain in right ankle and joints of right foot (principal); M77.31 Calcaneal spur, right foot ==

== ENCOUNTER → 2024-11-28 | Outpatient (CLI) | payer MEDICARE | LOC: M PLAIMG 16:14 | PROVIDERS: ATTEND Family Medicine | DX: M79.671 Pain in right foot (principal) ==

== ENCOUNTER → 2025-01-31 | Outpatient (CLI) | payer MEDICARE ==
[2025-01-31 14:25] LABS: BASO # 0.1 10^3/uL (0.0-0.2); BASO % 0.4 % (0.0-1.0); EOS # 0.2 10^3/uL (0.0-0.5); EOS % 1.1 % (0.0-3.0); LYMPH # 4.4 10^3/uL (1.5-5.0); LYMPH % 24.6 % (24.0-44.0); MONO # 1.2 10^3/uL (0.0-0.8); MONO % 6.7 % (2.0-8.0); NEUTROPHILS # 11.9 10^3/uL (1.5-8.5); NEUTROPHILS % 66.1 % (36.0-66.0); PLATELET COUNT, AUTOMATED 388 10^3/uL (150-450)
== END ==
LOC: M PLALAB 11:38
PROVIDERS: ATTEND Family Medicine
DX: M79.10 Myalgia, unspecified site (principal); E83.52 Hypercalcemia

== ENCOUNTER → 2025-03-09 | Outpatient (CLI) | payer MEDICARE | LOC: M WHC 14:56 | PROVIDERS: ATTEND Obstetrics & Gynecology | DX: R92.8 Other abnormal and inconclusive findings on diagnostic imaging of breast (principal); Z53.9 Procedure and treatment not carried out, unspecified reason ==